=== PATIENT | female | born 1980 | race Caucasian/White ===

== ENCOUNTER → 2016-07-25 | Outpatient (CLI) | payer OTHER | LOC: FIMAGING 13:30 | PROVIDERS: ATTEND Physician Assistant Medical | DX: Z12.39 Encounter for other screening for malignant neoplasm of breast (principal); N63 Unspecified lump in breast | CPT/HCPCS: G0204 ==

== ENCOUNTER → 2016-08-02 | Outpatient (CLI) | payer OTHER ==
[~2016-08-02] MED LIST: BUPIVACAINE 0.5% 10 ML SDV ONE; LIDO/EPI 1% **Not for Epidural 20 ML MDV ONE; LIDOCAINE 1% 300 MG/30 ML SDV ONE; NA BICARBONATE 50 MEQ/50 ML VIAL ONE; THROMBIN (BOVINE) 5,000 UNIT VIAL TP ONE
== END ==
LOC: FIMAGING 07:46
PROVIDERS: ATTEND Physician Assistant Medical
PROC: 0HBU3ZX Excision of Left Breast, Percutaneous Approach, Diagnostic (ICD-10-PCS; principal; 2016-08-02)
DX: C50.012 Malignant neoplasm of nipple and areola, left female breast (principal); D05.12 Intraductal carcinoma in situ of left breast
CPT/HCPCS: G0206

== ENCOUNTER → 2016-08-14 | Outpatient (CLI) | payer OTHER ==
[~2016-08-14] MED LIST changes: -BUPIVACAINE 0.5% 10 ML SDV ONE; +GADOBUTROL 10 ML VIAL IVP ONE; -LIDO/EPI 1% **Not for Epidural 20 ML MDV ONE; -LIDOCAINE 1% 300 MG/30 ML SDV ONE; -NA BICARBONATE 50 MEQ/50 ML VIAL ONE; -THROMBIN (BOVINE) 5,000 UNIT VIAL TP ONE
== END ==
LOC: FIMAGING 14:14
PROVIDERS: ATTEND Physician Assistant Medical
DX: C50.412 Malignant neoplasm of upper-outer quadrant of left female breast (principal); R91.8 Other nonspecific abnormal finding of lung field
CPT/HCPCS: 0159T; 77059; A9585; C8908

== ENCOUNTER → 2016-08-24 | Outpatient (CLI) | payer OTHER ==
[~2016-08-24] MED LIST changes: +BUPIVACAINE 0.5% 10 ML SDV ONE; -GADOBUTROL 10 ML VIAL IVP ONE; +LIDOCAINE 1% 300 MG/30 ML SDV ONE; +MIDAZOLAM 2 MG/2 ML VIAL ONE; +ONDANSETRON 4 MG/2 ML VIAL ONE; +fentaNYL 100 MCG/2 ML INJ ONE
[2016-08-24 14:03] LABS: HEMATOCRIT 42.4 % (38.0-47.0)
[2016-08-24 14:10] LABS: APTT 29.2 SEC (23.0-38.0); INR 1.08 (0.83-1.16); PROTIME(PATIENT) 13.9 SEC (12.0-15.0)
[2016-08-24 16:12] VITALS: TEMP 98.2
[2016-08-24 16:36] VITALS: RESP 15
[2016-08-24 16:38] VITALS: BP 93/67; PULSE 71; O2SAT 94
== END ==
LOC: FIMAGING 12:38
PROVIDERS: ATTEND Internal Medicine Hematology & Oncology
DX: R22.2 Localized swelling, mass and lump, trunk (principal); C50.412 Malignant neoplasm of upper-outer quadrant of left female breast
CPT/HCPCS: J2250; J2405; J3010

== ENCOUNTER 2017-02-16 09:31 | Inpatient (IN) | payer OTHER ==
[2017-02-16] MEDS ORDERED: DEXAMETHASONE 4 MG/ML VIAL IVP ONE (09:57)
[2017-02-16] MEDS ORDERED: ceFAZolin 2 GM/SWFI 2 GM/20 ML SYR IVP ONE (09:57)
[2017-02-16] MEDS ORDERED: ONDANSETRON 4 MG/2 ML VIAL IVP ONE (09:57)
[2017-02-16] MEDS ORDERED: LR 1,000 ML IV ONE (09:58)
[2017-02-16] MEDS ORDERED: LIDOCAINE 1% 2 ML INJ ID PRN (09:58)
[2017-02-16] MEDS ORDERED: GENTAMICIN SULFATE 80 MG/2 ML VIAL ONE (11:46)
[2017-02-16] MEDS ORDERED: BACITRACIN 50,000 UNITS/10 ML SYR IRR ONE (11:48)
[2017-02-16] MEDS ORDERED: ceFAZolin 1 GM/5 ML SYR ONE (11:48)
[2017-02-16] MEDS ORDERED: METHYLENE BLUE 0.5% 50 MG/10 ML AMP ONE (11:59)
--- NOTE | 2017-02-16 12:07 | PDANEPAE ---
ANE History of Present Illness 37 yo F w BCA here for B mastectomy with tissue expanders ANE Past Medical History - Cardiovascular History Hx Hypertension: No Hx Arrhythmias: No Hx Chest Pain: No Hx Coronary Artery / Peripheral Vascular Disease: No Hx CHF / Valvular Disease: No Hx Palpitations: No - Pulmonary History Hx COPD: No Hx Asthma/Reactive Airway Disease: No Hx Recent Upper Respiratory Infection: No Hx Oxygen in Use at Home: No Hx Sleep Apnea: No Sleep Apnea Screening Result - Last Documented: Negative - Neurologic History Hx Cerebrovascular Accident: No Hx Seizures: No Hx Dementia: No - Endocrine History Hx Diabetes: No - Renal History Hx Renal Disorders: No - Liver History Hx Hepatic Disorders: No - Neurological & Psychiatric Hx Hx Neurological and Psychiatric Disorders: No - Cancer History Hx Cancer: Yes Cancer History Comment: Breast CA - Congenital Disorder History Hx Congenital Disorders: No - GI History Hx Gastrointestinal Disorders: No - Other Health History Other Health History: NONE - Chronic Pain History Chronic Pain: No - Surgical History Prior Surgeries: Maria Esther; wisdom teeth extraction ANE Review of Systems Review of Systems: - Exercise capacity METS (RN): 4 METS ANE Patient History - Allergies Allergies/Adverse Reactions: No Known Allergies Allergy (Verified 01/24/17 14:12) - Home Medications Home Medications: Multivitamins [Multivitamin (OTC)] 1 each PO DAILY 10/17/11 [Last Taken 10/09/11 ] LORazepam [Ativan (*)] 0.5 - 1 mg PO DAILY PRN 01/19/17 [Last Taken Unknown] Levothyroxine [Synthroid 75 mcg (*)] 75 mcg PO DAILY06 01/19/17 [Last Taken Unknown] - NPO status NPO Status: no food or drink >8 hours NPO Since - Liquids (Date): 02/16/17 NPO Since - Liquids (Time): 06:00 NPO Since - Solids (Date): 02/15/17 NPO Since - Solids (Time): 18:30 - Anes Hx Anes Hx: post operative nausea - Smoking Hx Smoking Status: Never smoked - Alcohol Use Alcohol Use: None - Family Anes Hx Family Anes Hx: none Family Hx Anesthesia Complications: NONE ANE Labs/Vital Signs - Vital Signs Blood Pressure: 96/63 Heart Rate: 77 Respiratory Rate: 18 O2 Sat (%): 96 Height: 170.18 cm Weight: 77.111 kg ANE Physical Exam - [facility] Mouth exam: normal dental/mouth exam - Pulmonary Pulmonary: no respiratory distress, clear to auscultation - Cardiovascular Cardiovascular: regular rate and rhythym, no murmur, rub, or gallop - ASA Status ASA Status: III ANE Anesthesia Plan Anesthesia Plan: general endotracheal anesthesia Lines/Monitors: arterial line Total IV Anesthesia: Yes
[2017-02-16] MEDS ORDERED: MIDAZOLAM 2 MG/2 ML VIAL IVP ONE (12:10)
[2017-02-16] MEDS ORDERED: SCOPOLAMINE HYDROBROMIDE 1 MG/3 DAYS PATCH TD SCH (12:15)
[2017-02-16] MEDS ORDERED: fentaNYL 100 MCG/2 ML INJ ONE (12:20)
[2017-02-16] MEDS ORDERED: PROPOFOL/EMULSION 500 MG/50 ML BOTTLE IV ONE ×3 (12:20→15:23)
[2017-02-16] MEDS ORDERED: PROPOFOL 200 MG/20 ML VIAL ONE (12:20)
[2017-02-16] MEDS ORDERED: ROCURONIUM 50 MG/5 ML VIAL ONE (12:23)
[2017-02-16] MEDS ORDERED: LIDOCAINE 2% 100 MG/5 ML SYR ONE (12:23)
[2017-02-16] MEDS ORDERED: ACETAMINOPHEN 325 MG TAB PO PRN (12:39)
[2017-02-16] MEDS ORDERED: LR 1,000 ML IV SCH (13:00)
[2017-02-16] MEDS ORDERED: HYDROmorphONE/DILAUDID 2 MG/ML INJ ONE (13:35)
[2017-02-16] MEDS ORDERED: ceFAZolin 2 GM/DEXTROSE 100 ML IV SCH (14:00)
[2017-02-16] MEDS ORDERED: BACITRACIN ZINC 14.2 GM OINTTUBE TP ONE (15:16)
[2017-02-16] MEDS ORDERED: BUPIVACAINE 0.25% 30 ML SDV ONE (15:22)
[2017-02-16] MEDS ORDERED: OXYCODONE/APAP 5/325 TAB PO PRN (16:06)
[2017-02-16] MEDS ORDERED: HYDROmorphONE/DILAUDID 1 MG/ML INJ IVP PRN (16:06)
[2017-02-16] MEDS ORDERED: ACETAMINOPHEN 500 MG TAB PO PRN (16:06)
[2017-02-16] MEDS ORDERED: ONDANSETRON 4 MG/2 ML VIAL IVP PRN (16:06)
[2017-02-16] MEDS ORDERED: fentaNYL 100 MCG/2 ML INJ IVP PRN (16:06)
[2017-02-16] MEDS ORDERED: PROMETHAZINE HCL 25 MG/ML INJ IVP PRN (16:06)
[2017-02-16] MEDS ORDERED: MEPERIDINE 25 MG/ML SYR IVP PRN (16:06)
[2017-02-16] MEDS ORDERED: NALOXONE HCL 0.4 MG/ML INJ IVP PRN (16:06)
[2017-02-16] MEDS ORDERED: HYDROCODONE/APAP 5/325 TAB PO PRN (16:06)
--- NOTE | 2017-02-16 16:17 | POSTOPPROG ---
Post Op Note Date of Operation: 02/16/17 Surgeon: Ha Farah (, FACS) Stock Order Lister: Jody Sanders RN-FA Anesthesiologist: Bang Mares MD Anesthesia: GET(General Endotracheal) Pre-op Diagnosis: left breast cancer Post-op Diagnosis: same Procedure: bilateral total mastectomy with SLN mapping and superficial ALND Findings: 2/2 nodes right + 3/3 nodes negative by frozen Inf/Abcess present in the surg proc area at time of surgery?: No Drains: Delta Khanna Specimen(s): bilateral breast and bilateral SLNs
[2017-02-16] MEDS ORDERED: PROMETHAZINE HCL 25 MG/ML INJ ONE (16:29)
[2017-02-16] MEDS ORDERED: ONDANSETRON 4 MG/2 ML VIAL ONE (16:29)
[2017-02-16] MEDS ORDERED: DIAZEPAM 10 MG/2 ML SYR ONE (16:48)
[2017-02-16] MEDS ORDERED: DIAZEPAM 10 MG/2 ML SYR IVP PRN (16:53)
[2017-02-16] MEDS: LR 1,000 ML IV SCH (18:19)
[2017-02-16] MEDS: PROMETHAZINE HCL 25 MG/ML INJ IVP PRN (18:28)
[2017-02-16] MEDS: CYCLOBENZAPRINE 10 MG TAB PO SCH ×2 (19:28→21:24)
--- NOTE | 2017-02-16 19:55 | POSTANESTH ---
Post Anesthetic Evaluation Cardiovascular Status: Normal, Stable, Similar to Pre-Op Cond Respiratory Status: Normal, Stable, Similar to Pre-op Cond. Level of Consciousness/Mental Status: Can Participate in Eval, Alert and Oriented Pain Control: Adequate, Prn Tx Ordered Nausea/Vomiting Control: Adequate, Prn Tx Ordered Complications Possibly Related to Anesthesia: None Noted
[2017-02-16] MEDS: ONDANSETRON 4 MG/2 ML VIAL IVP PRN (21:22)
[2017-02-16] MEDS: ceFAZolin 2 GM/DEXTROSE 100 ML IV SCH (21:32)
[2017-02-17] MEDS: PROMETHAZINE HCL 25 MG/ML INJ IVP PRN (01:56)
[2017-02-17] MEDS: LR 1,000 ML IV SCH (01:59)
[2017-02-17] MEDS: HYDROmorphONE/DILAUDID 1 MG/ML INJ IVP PRN ×2 (02:38→09:12)
--- NOTE | 2017-02-17 04:52 | GOP ---
[f rep st] OPERATIVE REPORT DATE OF OPERATION: 02/16/2017 SURGEON: Chang Cortes MD GROUP INSURANCE SPECIALIST: Fadi Christy, FARM LABORER. ANESTHESIA: General endotracheal. PREOPERATIVE DIAGNOSIS: Left breast cancer. POSTOPERATIVE DIAGNOSIS: Left breast cancer. PROCEDURE PERFORMED: Bilateral breast reconstruction with tissue expanders and AlloDerm. FINDINGS: At the time of surgery were bilateral mastectomies. SPECIMENS: For my part, were none; and urine was not recorded. ESTIMATED BLOOD LOSS: 30 cc. INDICATIONS: The patient is a 37-year-old female with diagnosed left breast cancer approximately a f ew months ago. This was treated with adjuvant therapy. She now presents today for bilateral mastect omies and immediate reconstruction. DESCRIPTION OF PROCEDURE: The patient was met in the preoperative area where the risks and benefits were discussed with her at length, which include but not limited to infection, bleeding, hematoma, se sundeep, partial or total mastectomy skin flap necrosis, asymmetry, poor cosmesis, and the need for furt her revision surgeries. She was agreeable to this and therefore signed the operative consent. Withi n the preoperative area, she was marked in the midline, her inframammary fold as well as the breast m eridian, and the elliptical incisions around the nipples in order to make the mastectomy cuts. Once brought into the operating room, a time-out was performed, where all in the room agreed upon the site and the procedure to be performed. She received 2 g of Ancef prior to any incision being made. Bobby ateral SCDs were placed for DVT prophylaxis. The bilateral mastectomy part will be dictated by my co Dr. Ha hernadez. We began our part of procedure on the right side. We identified the mastectomy skin flaps and they w ere deemed to be viable, and we washed out with copious amounts of sterile saline and any hemostasis was achieved with electrocautery. We began and found the lateral border of the pectoralis major musc le. This was lifted up off the chest wall to develop a subpectoral pocket for the impending placemen t of the radiology receptionist. We were careful to coagulate any intercostal perforators with electrocautery, and made a smooth contour of the subpectoral pocket. We then traced out the footplate of the radiology receptionist. The radiology receptionist that was chosen was a 12 cm base diameter radiology receptionist. This was traced with methylene jake e for the placement of AlloDerm. A 20 x 12, 2.2 mm thick piece of AlloDerm was then used and cut to contour. This was then sutured to the patient's inframammary fold as well as the lateral chest wall with a running 2-0 Vicryl suture. The pocket was then washed out with copious amounts of triple anti biotic saline, and my event sales assistant and I changed our gloves. All the air was taken out of the radiology receptionist in a closed sterile fashion, and this was placed within the subpectoral pocket and good orientation w as confirmed. The suture tabs were then sutured to the chest wall with 2-0 PDS sutures and, again, c orrect orientation was confirmed. The subpectoral pocket was then closed completely with a running 2 -0 Vicryl suture, with the superior border of the AlloDerm to the inferior border of pectoralis major muscle. Again, this was all washed out with copious amounts of sterile saline. Two 15-Kinyarwanda round RENE drains were placed, one along the IMF and one within the lateral axilla, and secured to the skin with 2-0 silk sutures. Tailor tacking was then performed because the patient had excess skin from th e mastectomy incisions. This was done sharply with a 10 blade, and then the skin was closed in a com plex fashion with 3-0 Monocryl and skin nicole. She was then filled in a closed sterile fashion; th is was 300 cc done on the right side, and no undue tension on the flaps was performed. The same proc edure was then performed on the left side. Again, another 13 base diameter, 133 MX-13T radiology receptionist was placed on the other side, and also a 12 x 20 AlloDerm was cut to contour. The subpectoral pocket was developed in the exact same fashion. The radiology receptionist was then placed, and also we had to tailor tack t he skin on the left side as well, and also 300 cc were placed in the left-sided radiology receptionist under closed sterile conditions with sterile saline infused with methylene blue. Dressings were then placed with bacitracin along the incision line, Xeroform, fluffs, and a surgical support bra. There were no com plications. The count was correct at the end of the case. She was awoken and taken to PACU. IV FLUIDS: 2 L. COMPLICATIONS: None. EXPANDERS: The left was serial number [id number]; this is a 133 MX-13T. The fill was 300 out of 500 c c. Right-sided tissue radiology receptionist was [id number]. Again, this is a 133 MX-13T; 300 out of 500. /[id number]/MODL
--- NOTE | 2017-02-17 05:28 | GOP ---
[f rep st] OPERATIVE REPORT DATE OF OPERATION: 02/16/2017 SURGEON: Ha Farah MD, FACS TERRAZZO FINISHER: VANITA Gastelum. ANESTHESIA: General endotracheal. ANESTHESIOLOGIST: Bang Mares MD. PREOPERATIVE DIAGNOSIS: Left breast carcinoma, status post neoadjuvant chemotherapy. POSTOPERATIVE DIAGNOSIS: Left breast carcinoma, status post neoadjuvant chemotherapy. PROCEDURE PERFORMED: 1. Bilateral total mastectomy. 2. Bilateral sentinel lymph node mapping and superficial axillary lymph node dissection. 3. Venous Port removal FINDINGS: 2/2 sentinel nodes on the right and 3/3 sentinel nodes on the left negative by frozen section for metastasis ESTIMATED BLOOD LOSS: For this portion of the procedure: 200 mL. 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 She underwent neoadjuvant chemotherapy had resolution of the lesion in the sternum and considerable shrinkage of the tumor in the left upper outer quadrant of her breast by PET imaging. She tested positive for the BRCA1 mutation and elected bilateral mastectomy after completion of chemotherapy. DESCRIPTION OF PROCEDURE: After informed consent was obtained, the patient was brought to the operating room and placed under general anesthesia. The chest wall, axilla, neck and abdomen were prepped and draped in the usual sterile fashion. Before proceeding, a time-out and identification of the patient was performed. The right mastectomy was performed first as follows. An intercostal block was placed at the 4th, 5th and 6th intercostal space with 0.25% Marcaine, approximately 5-6 mm delivered to each intercostal space. The mastectomy incision was made with a scalpel as a transverse incision encompassing the nipple-areolar complex, transversely oriented across the chest wall. Skin flaps were elevated using cautery, the breast from the overlying skin. Dissection carried out cephalad to the infraclavicular fossa, medially to the sternal border, and inferiorly to the inframammary fold. The patient had several larger intercostal perforators that required securing with hemoclips and/or suture ligatures. The lateral aspect of the dissection was carried out to the latissimus border. The breast was then from the underlying pectoralis using cautery, starting medially and sweeping the breast laterally off the pectoralis. At the pectoral border dissection was carried out posteriorly to the latissimus along the course of the serratus and cephalad to the axilla. The tail of the breast was at the axillary fascia. This was taken from the field and tagged for orientation and submitted for gross inspection as well as permanent section. The axilla was interrogated with the gamma probe. Mapping the sentinel nodes which appeared in the mid level 1 chain. These were superficial to the thoracodorsal neurovascular bundle and were not clinically suspicious. Two nodes were retrieved adjacent to each other in 1 specimen and were removed from the field. The surrounding lymphovascular structures were hemoclipped and divided. The remaining nodes in the axilla demonstrated considerably less than 10% of the maximum counts of the 2 sentinel nodes. These were submitted for frozen section and were ultimately shown to show no evidence of metastatic malignancy on frozen section. Hemostasis appeared secure within the mastectomy site and axillary site and wound was covered with a moistened laparotomy sponge. Turning to the left side, the breast was inspected and the axilla interrogated with the Neoprobe, identifying the sentinel nodes in the lower level 1 chain somewhat posteriorly. This was noted. The mastectomy was initiated through a transverse incision, mirror image to the right, dissecting cephalad in the subcutaneous plane to the infraclavicular fossa where the patient's venous port was encountered. This was detached along with its sutures and liberated from the subcutaneous pocket where it had resided for the past several months. The tunnel leading the subclavian vein was oversewn with a 3-0 Vicryl suture in a [id number] fashion. As the catheter was removed the suture was secured closing the tunnel. The port and catheter were removed from the field. The remainder of the dissection was continued with cautery to the infraclavicular fossa, medially to the sternal border, inferiorly to the inframammary fold and laterally to the latissimus border. The patient's tumor had been in the upper outer quadrant, was barely palpable at the time of surgery, though it had been quite prominent upon presentation, representing a significant clinical response to chemotherapy. The breast was swept from the pectoralis border, larger vessels was secured with hemoclips and/or ligated with 3-0 Vicryl ligatures. The breast was dissected to the pectoralis border, posteriorly to the latissimus border and cephalad to the axillary tail. There were no palpably suspicious nodes. The breast was from the axilla, removed from the field and tagged for orientation, submitted for gross inspection as well as permanent section. The axillary fascia was incised and superficial axillary nodes were dissected. The sentinel nodes presented deep in the lower level 1 chain. Dissection came to the superficial plane of the thoracodorsal neurovascular bundle and 3 sentinel nodes were retrieved, none of which appeared clinically suspicious. The remaining nodes in the axilla were interrogated and inspected, none appeared suspicious. Lymphovascular structures were hemoclipped and/or divided with sparing use of cautery. Upon completion, hemostasis appeared secure. Subsequently, the lymph nodes were found to be negative by frozen section and were submitted for permanent section and immune histo chemistry. While we were completing the left mastectomy, Dr. Cortes had initiated the right reconstruction and continued to the left side, as we had completed the mastectomy. I returned to the operating room upon the patient's extubation and escorted her to the recovery room along with Dr. Mares, and she was in stable condition. COMPLICATIONS: None. /[id number]/MODL MTDD
[2017-02-17 05:29] LABS: HEMATOCRIT 31.2 % (38.0-47.0); HEMOGLOBIN 10.3 g/dL (12.6-16.3); MEAN CELL HEMOGLOBIN 31.5 pg (27.9-34.1); MEAN CELL VOLUME 95.4 fL (81.5-99.8); RED BLOOD CELL COUNT 3.27 10^6/uL (4.18-5.33); RED CELL DISTRIBUTION WIDTH 12.7 % (11.5-15.2)
[2017-02-17] MEDS: ceFAZolin 2 GM/DEXTROSE 100 ML IV SCH ×3 (06:09→22:01)
[2017-02-17] MEDS: LEVOTHYROXINE 75 MCG TAB PO SCH (06:12)
[2017-02-17] MEDS: ONDANSETRON 4 MG/2 ML VIAL IVP PRN ×3 (09:11→17:05)
[2017-02-17] MEDS: CYCLOBENZAPRINE 10 MG TAB PO SCH ×3 (09:11→22:01)
[2017-02-17] MEDS ORDERED: HYDROmorphone HCL/NS/PF 0.4 MG/2 ML SYR IVP PRN (09:15)
--- NOTE | 2017-02-17 10:42 | SOAPPROG ---
SOAP Progress Note Assessment/Plan: Assessment: POD#1 bilateral mastectomies and reconstruction with tissue expanders and alloderm Plan: 02/17/17 10:38 1. Encourage ambulation 2. PO pain control 3. Cont IV antibiotics 4. Add ibuprofen 600mg q6hr Subjective: Moderate pain control, has yet to ambulate Objective: Vital Signs Temp Pulse Resp BP Pulse Ox 36.9 C 68 18 122/65 H 97 02/17/17 08:20 02/17/17 08:20 02/17/17 08:20 02/17/17 08:20 02/17/17 08:20 Laboratory Results 02/17/17 04:42 02/16/17 02/17/17 02/18/17 05:59 05:59 05:59 Intake Total 2625 Output Total 1195 85 Balance 1430 -85 Bilateral mastectomy skin flaps with minimal swelling and bruising, INC: C/D/I RENE drains serosang ICD10 Worksheet Patient Problems: Problems Problem Status Onset Breast cancer Acute - ICD10 Problem Qualifiers (1) Breast cancer
--- NOTE | 2017-02-17 12:38 | SOAPPROG ---
SOAP Progress Note Assessment/Plan: Assessment:doing well post op Plan:po meds/? home tomorrow 02/17/17 12:37 Subjective: resting comfortably/mild nausea voided x 2 Objective: Vital Signs Temp Pulse Resp BP Pulse Ox 37.0 C 81 17 104/60 89 L 02/17/17 11:46 02/17/17 11:46 02/17/17 11:46 02/17/17 11:46 02/17/17 11:46 Laboratory Results 02/17/17 04:42 02/16/17 02/17/17 02/18/17 05:59 05:59 05:59 Intake Total 2625 Output Total 1195 85 Balance 1430 -85 Physical Exam - Physical Exam General Appearance: no apparent distress Respiratory: lungs clear Cardiac/Chest: regular rate, rhythm Skin: other (mastectomy sites uncomplicated) Extremities: non-tender ICD10 Worksheet Patient Problems: Problems Problem Status Onset Breast cancer Acute
[2017-02-17] MEDS: OXYCODONE/APAP 5/325 TAB PO PRN ×2 (12:42→17:05)
[2017-02-17] MEDS: IBUPROFEN 600 MG TAB PO SCH ×3 (12:43→21:03)
[2017-02-17] MEDS: ENOXAPARIN 40 MG/0.4 ML SYR SC SCH (12:47)
--- NOTE | 2017-02-17 16:20 | ASMTCMCOM ---
CM Note CM Note Notes: Pt s/p mastectomy. Anticipate d/c with no CM needs when medically cleared but will continue to follow for any change in needs. Date Signed: 02/17/2017 04:19 PM Electronically Signed By:NARDA Navarro
[2017-02-18] MEDS: CEPHALEXIN 500 MG CAP PO SCH ×3 (00:11→12:12)
[2017-02-18] MEDS: LEVOTHYROXINE 75 MCG TAB PO SCH (05:22)
[2017-02-18] MEDS: IBUPROFEN 600 MG TAB PO SCH ×2 (05:22→12:13)
[2017-02-18] MEDS: OXYCODONE/APAP 5/325 TAB PO PRN ×2 (05:26→12:13)
[2017-02-18] MEDS ORDERED: ONDANSETRON DISINTEGRATING 4 MG TAB PO PRN (07:07)
[2017-02-18] MEDS ORDERED: MAGNESIUM HYDROXIDE 30 ML UDCUP PO PRN (07:08)
[2017-02-18] MEDS ORDERED: BISACODYL 10 MG SUPP PR PRN (07:08)
--- NOTE | 2017-02-18 07:12 | SOAPPROG ---
SOAP Progress Note Assessment/Plan: Assessment:doing well post op from surgical viewpoint RUE swelling likely related to IV infiltrating Plan: add oral Dilaudid to pain regimen increase activity 02/17/17 12:37 02/18/17 07:11 Subjective: reports RUE swelling starting at 1800 last PM. feels better this AM Objective: Vital Signs Temp Pulse Resp BP Pulse Ox 36.7 C 73 12 99/57 L 96 02/18/17 04:00 02/18/17 04:00 02/18/17 04:00 02/18/17 04:00 02/18/17 04:00 Laboratory Results 02/17/17 04:42 02/17/17 02/18/17 02/19/17 05:59 05:59 05:59 Intake Total 2625 1000 Output Total 1195 292 100 Balance 1430 708 -100 - Pending Discharge Pending Discharge Within 24 Hours: Yes Pending Discharge Date: 02/19/17 Pending Discharge Time: 11:00 Physical Exam - Physical Exam General Appearance: mild distress Respiratory: lungs clear, decreased breath sounds Cardiac/Chest: regular rate, rhythm Skin: other (mastectomy sites uncomplicated) Extremities: other (mild swelling RUE/tender without obvious phlebitis R distal cephalic vein (IV site)) ICD10 Worksheet Patient Problems: Problems Problem Status Onset Breast cancer Acute
[2017-02-18 08:43] VITALS: O2SAT 95
[2017-02-18] MEDS ORDERED: SENNOSIDES/DOCUSATE SODIUM TAB PO SCH (09:00)
[2017-02-18] MEDS: CYCLOBENZAPRINE 10 MG TAB PO SCH (09:31)
[2017-02-18] MEDS: HYDROmorphONE/DILAUDID 4 MG TAB PO PRN ×2 (09:31→14:10)
[2017-02-18] MEDS: ENOXAPARIN 40 MG/0.4 ML SYR SC SCH (09:32)
[2017-02-18 12:00] VITALS: BP 123/70; PULSE 74; RESP 16; TEMP 98
--- NOTE | 2017-02-18 14:18 | GDS ---
[f rep st] DISCHARGE SUMMARY DISCHARGE DIAGNOSIS: 1. Left breast carcinoma, status post neoadjuvant chemotherapy. 2. Postoperative pain and nausea. 3. Hypothyroidism. PROCEDURE PERFORMED: 02/16/2017, bilateral total mastectomy with sentinel lymph node mapping and gwendolyn ateral superficial axillary lymph node dissection followed by immediate reconstruction with tissue ex pander and AlloDerm placement. HOSPITAL COURSE: For details of admission history and physical, please see dictated summary. Briefl y, the patient is a 37-year-old female who completed neoadjuvant chemotherapy for triple negative lef t breast carcinoma. She was found to have an oligometastatic deposit in the upper sternum that resol anne-marie by PET imaging and was presumed malignant. The patient underwent surgery on the date of admissio n. Following surgery, she was admitted for postoperative observation. Had mild to moderate discomfo rt requiring intravenous hydromorphone in addition to oral oxycodone. Her IV infiltrated on the even ing after surgery and her arm became swollen. A stat venous duplex ultrasound was performed, and the re was no evidence of venous thrombosis and the swelling was presumed due to infiltration of her IV. At this point, she was mildly nauseated but was able to hold down oral liquids and medications. Ora l Dilaudid was added to her pain medicine regimen. She had poor pain control with oxycodone alone. S he had been taking Flexeril as well as ibuprofen for pain control. Her arm swelling improved with el evation and a hot pack and she tolerated a regular diet on the day of discharge. She was discharged home with instructions on activity, diet and follow up with Dr. Cortes in the upcoming week. Saroj stubbs call her with the results of her pathology. DISCHARGE MEDICATIONS: Flexeril 10 mg p.o. three times daily, Dilaudid 2 to 4 mg p.o. q.4 hours p.r. n., #30, ibuprofen 600 mg p.o. four times daily, Zofran 4 mg p.o. q.4 hours p.r.n. #10, Percocet 1 to 2 q.4 hours p.r.n., and Senokot S, 1 p.o. twice daily. In addition, she will resume Synthroid 75 mc g p.o. daily, multivitamins and Ativan 0.5 mg p.o. daily p.r.n. anxiety. CONDITION AT TIME OF DISCHARGE: Satisfactory. /[id number]/MODL
--- NOTE | 2017-02-18 15:22 | PDDCSUM ---
Discharge Summary Discharge Summary: #[id number] karen Farah MD, FACS
--- NOTE | 2017-02-18 15:39 | ASDISCHSUM ---
Discharge Information Plan Status:Home with No Needs Medically Cleared to Leave: Discharge Date:02/18/2017 03:05 PM CM D/C Disposition:Home, Routine, Self-Care ADT D/C Disposition:Home, Routine, Self-Care Projected Discharge Date:02/18/2017 03:05 PM Transportation at D/C: Discharge Delay Reason: Follow-Up Date:02/18/2017 03:05 PM Discharge Slot: Final Diagnosis: Placement Information Patient Contact Information Contact Name:LENORE Relationship: Address:[address] Work Phone: City:[facility] Phone: [facility]/Zip Code:[place] [address] Email: Financial Information Financial Class:HMO and PPO Plans Primary Plan Desc:SEMAJ FERNANDO PPO Primary Plan Number:[id number] Secondary Plan Desc:GARETT Secondary Plan Number:[id number] Assessment Information [facility] CM Progress Note CM Note CM Note Notes: Pt s/p mastectomy. Anticipate d/c with no CM needs when medically cleared but will continue to follow for any change in needs. Date Signed: 02/17/2017 04:19 PM Electronically Signed By:NARDA Navarro [facility] CM Progress Note CM Note CM Note Notes: Reviewed chart and discussed w/RN. Pt was able to dc home independantly today, no CM needs. Date Signed: 02/18/2017 03:38 PM Electronically Signed By:Leticia Brady RN Intervention Information
== END 2017-02-18 15:05 | disposition home or self-care (01) | DRG 941 ==
LOC: F3E 09:31 → F1N 13:27 → OBSVTOIN 02-18 09:38
PROVIDERS: ADMIT Surgery; ATTEND Surgery
PROC: 0HTV0ZZ Resection of Bilateral Breast, Open Approach (ICD-10-PCS; principal; 2017-02-16 12:15)
PROC: 07T50ZZ Resection of Right Axillary Lymphatic, Open Approach (ICD-10-PCS; principal; 2017-02-16 12:15)
PROC: 07T60ZZ Resection of Left Axillary Lymphatic, Open Approach (ICD-10-PCS; principal; 2017-02-16 12:15)
PROC: 05PY03Z Removal of Infusion Device from Upper Vein, Open Approach (ICD-10-PCS; principal; 2017-02-16 12:15)
PROC: 0HUV0JZ Supplement Bilateral Breast with Synthetic Substitute, Open Approach (ICD-10-PCS; principal; 2017-02-16 12:15)
DX: G89.18 Other acute postprocedural pain (principal); R11.0 Nausea; C50.412 Malignant neoplasm of upper-outer quadrant of left female breast; E03.9 Hypothyroidism, unspecified; Z92.21 Personal history of antineoplastic chemotherapy
CPT/HCPCS: A9520; G0378; J0690; J1100; J1170; J1650; J2001; J2250; J2405; J2550; J2704; J3010; Q4116; Q9968

== ENCOUNTER → 2017-03-30 | Outpatient (CLI) | payer OTHER | LOC: CIMAGING 14:52 | PROVIDERS: ATTEND Podiatrist | DX: M79.672 Pain in left foot (principal) | CPT/HCPCS: 73630-PO ==

== ENCOUNTER 2017-08-08 14:23 | Emergency (ER) | payer OTHER ==
[2017-08-08] MEDS ORDERED: ONDANSETRON 4 MG/2 ML VIAL IVP ONE (14:49)
[2017-08-08] MEDS ORDERED: NS 1,000 ML IV ONE ×2 (14:51→15:33)
[2017-08-08 15:01] LABS: PLATELET COUNT 223 10^3/uL (150-400)
--- NOTE | 2017-08-08 15:05 | EDPHY ---
HPI/HX/ROS/PE/MDM Narrative: CHIEF COMPLAINT: Vomiting HPI: The patient is a 37-year-old female with a history of breast cancer, currently on oral chemotherapy. She complains of nausea, vomiting and diarrhea since this morning. She states this is somewhat similar to side effects that she normally experiences from her oral chemotherapy but more severe. She denies fever or abdominal pain. She denies dysuria. She recently returned from camping but denies any exposure to abnormal food or water. No recent antibiotics. No blood in emesis or stool. REVIEW OF SYSTEMS: Aside from elements discussed in the HPI, a comprehensive 10-point review of systems was reviewed and is negative. PMH: Includes breast cancer. History of cholecystectomy. SOCIAL HISTORY: . Denies drug abuse. PHYSICAL EXAM: General:Patient is alert, in no acute distress. ENT:Eyes are normal to inspection. ENT inspection normal. Neck: Normal inspection. Full range of motion. Respiratory:No respiratory distress. Breath sounds normal bilaterally. Cardiovascular: Tachycardic rate, regular rhythm. Strong peripheral pulses. Normal cap refill. Abdomen:The abdomen is nontender to palpation. There are no peritoneal signs. There are normal bowel sounds. Back: Normal to inspection. No tenderness to palpation. Skin: Normal color. No rash. Warm and dry. Extremities: Normal appearance. Full range of motion. Neuro: Oriented x3. Normal motor function. Normal sensory function. ED Course: Patient treated with 2L IVNS, Zofran and Toradol. On re-evaluation at 1730, patient now slightly more tachycardic with lower BP. I have asked for lactic acid and blood cx to be sent. Abdomen remains non-tender to palpation, and patient actually feels better. 1800: Lactic acid within normal limits. Patient states she continues to feel better. HR 107. 1820: Patient still with BP 85/60 and HR 115. I had an extensive discussion with her and recommended admission as well as possible CTAP given her immunosuppressed status. She declines CT and would prefer to go home. She understands risks of decision including possible life-threat and worsening of condition/need for pressors etc. We agreed on a plan to try a PO challenge as well as a road test. 1845: Patient tolerating fluids by mouth and able to ambulate without difficulty. Her vitals remain abnormal, but she states she would like to be discharged. I repeated discussion of recommended admission and further workup with who is now present and he understands but is in agreement with his that they would like to try and go home. We specifically discussed fact that she is at elevated risk of infectious complications secondary to her oral chemotherapy. They promise to return to the hospital immediately should patient feel worse. In order to preserve the doctor-patient relationship, I have chosen not sign patient out AMA. - Data Points Laboratory Results: Laboratory Results 08/08/17 14:48 08/08/17 14:48 08/08/17 08/08/17 08/08/17 17:30 16:41 14:48 WBC RBC Hgb Hct MCV MCH MCHC RDW Plt Count MPV Neut % (Auto) Lymph % (Auto) [place] % (Auto) Eos % (Auto) Baso % (Auto) Nucleat RBC Rel Count Absolute Neuts (auto) Absolute Lymphs (auto) Absolute Monos (auto) Absolute Eos (auto) Absolute Basos (auto) Absolute Nucleated RBC Immature Gran % Immature Gran # VBG Lactic Acid 1.2 mmol/L mmol/L (0.7-2.1) Sodium Potassium Chloride Carbon Dioxide Anion Gap BUN Creatinine Estimated GFR Glucose Calcium Lipase Beta HCG, Qual NEGATIVE Urine Color YELLOW Urine Appearance CLEAR Urine pH 5.5 (5.0-7.5) Ur Specific [place] 1.025 (1.002-1.030) Urine Protein NEGATIVE (NEGATIVE) Urine Ketones TRACE H (NEGATIVE) Urine Blood NEGATIVE (NEGATIVE) Urine Nitrate NEGATIVE (NEGATIVE) Urine Bilirubin NEGATIVE (NEGATIVE) Urine Urobilinogen 0.2 EU EU (0.2-1.0) Ur Leukocyte Esterase NEGATIVE (NEGATIVE) Urine Glucose NEGATIVE (NEGATIVE) 08/08/17 08/08/17 14:48 14:48 WBC 8.88 10^3/uL 10^3/uL (3.80-9.50) RBC 4.34 10^6/uL 10^6/uL (4.18-5.33) Hgb 15.1 g/dL g/dL (12.6-16.3) Hct 43.0 % % (38.0-47.0) MCV 99.1 fL fL (81.5-99.8) MCH 34.8 pg H pg (27.9-34.1) MCHC 35.1 g/dL g/dL (32.4-36.7) RDW 16.8 % H % (11.5-15.2) Plt Count 223 10^3/uL 10^3/uL (150-400) MPV 10.1 fL fL (8.7-11.7) Neut % (Auto) 94.2 % H % (39.3-74.2) Lymph % (Auto) 2.0 % L % (15.0-45.0) [place] % (Auto) 3.3 % L % (4.5-13.0) Eos % (Auto) 0.3 % L % (0.6-7.6) Baso % (Auto) 0.0 % L % (0.3-1.7) Nucleat RBC Rel Count 0.0 % % (0.0-0.2) Absolute Neuts (auto) 8.36 10^3/uL H 10^3/uL (1.70-6.50) Absolute Lymphs (auto) 0.18 10^3/uL L 10^3/uL (1.00-3.00) Absolute Monos (auto) 0.29 10^3/uL L 10^3/uL (0.30-0.80) Absolute Eos (auto) 0.03 10^3/uL 10^3/uL (0.03-0.40) Absolute Basos (auto) 0.00 10^3/uL L 10^3/uL (0.02-0.10) Absolute Nucleated RBC 0.00 10^3/uL 10^3/uL (0-0.01) Immature Gran % 0.2 % % (0.0-1.1) Immature Gran # 0.02 10^3/uL 10^3/uL (0.00-0.10) VBG Lactic Acid Sodium 141 mEq/L mEq/L (135-145) Potassium 4.1 mEq/L mEq/L (3.3-5.0) Chloride 106 mEq/L mEq/L (97-110) Carbon Dioxide 25 mEq/l mEq/l (22-31) Anion Gap 10 mEq/L mEq/L (8-16) BUN 10 mg/dL mg/dL (7-23) Creatinine 0.7 mg/dL mg/dL (0.6-1.0) Estimated GFR > 60 Glucose 108 mg/dL H mg/dL (70-100) Calcium 8.7 mg/dL mg/dL (8.5-10.4) Lipase 25 IU/L IU/L (23-300) Beta HCG, Qual Urine Color Urine Appearance Urine pH Ur Specific [place] Urine Protein Urine Ketones Urine Blood Urine Nitrate Urine Bilirubin Urine Urobilinogen Ur Leukocyte Esterase Urine Glucose Medications Given: Discontinued Medications Sodium Chloride (Ns) 1,000 mls @ 0 mls/hr IV ONCE ONE PRN Reason: Wide Open Stop: 08/08/17 14:52 Last Admin: 08/08/17 14:55 Dose: 1,000 mls Sodium Chloride (Ns) 1,000 mls @ 0 mls/hr IV EDNOW ONE; Wide Open PRN Reason: Protocol Stop: 08/08/17 15:34 Last Admin: 08/08/17 15:37 Dose: 1,000 mls Ketorolac Tromethamine (Toradol) 30 mg IVP EDNOW ONE Stop: 08/08/17 16:11 Last Admin: 08/08/17 16:16 Dose: 30 mg Ondansetron HCl (Zofran) 4 mg IVP EDNOW ONE Stop: 08/08/17 14:50 Last Admin: 08/08/17 14:56 Dose: 4 mg General Time Seen by Provider: 08/08/17 14:52 Initial Vital Signs: Initial Vital Signs Temperature (C) 37.3 C 08/08/17 14:37 Heart Rate 127 H 08/08/17 14:37 Respiratory Rate 18 08/08/17 14:37 Blood Pressure 102/70 08/08/17 14:37 O2 Sat (%) 95 08/08/17 14:37 O2 Delivery Mode Room Air Allergies/Adverse Reactions: codeine Adverse Reaction (Severe, Verified 08/08/17 14:41) Home Medications: Medication Instructions Recorded Multivitamins [Multivitamin (*)] 1 each PO DAILY 10/17/11 LORazepam [Ativan (*)] 0.5 - 1 mg PO DAILY PRN 01/19/17 Levothyroxine [Synthroid 75 mcg 75 mcg PO DAILY06 01/19/17 (*)] Ondansetron Odt [Zofran Odt 4 mg 4 mg PO Q4HRS PRN #10 tab 02/18/17 (*)] Xeloda 08/08/17 Departure - Departure Disposition: Home, Routine, Self-Care Clinical Impression: Vomiting, Abdominal pain Condition: Fair Instructions: Acute Nausea and Vomiting (ED) Additional Instructions: You have refused further testing or admission to the hospital. We would be happy to re-evaluate to at any time. Please ensure the stay well hydrated and rest. Should you feel worse or develops new symptoms, proceed immediately to nearest emergency department. Use Zofran as indicated. Referrals: NONE *PRIMARY CARE P,. [Primary Care Provider] - As per Instructions
[2017-08-08] MEDS ORDERED: KETOROLAC 30 MG/1 ML SDV IVP ONE (16:10)
[2017-08-08 19:09] VITALS: BP 89/56
== END 2017-08-08 19:07 | disposition home or self-care (01) ==
LOC: CED 14:23
DX: R11.10 Vomiting, unspecified (principal); R10.9 Unspecified abdominal pain; E86.9 Volume depletion, unspecified; Z85.3 Personal history of malignant neoplasm of breast; Z90.49 Acquired absence of other specified parts of digestive tract
CPT/HCPCS: 80048-PO; 81003-PO; 83605-PO; 83690-PO; 84703-PO; 85025-PO; 96374; J1885; J2405

== ENCOUNTER → 2017-08-17 | Day surgery (SDC) | payer OTHER ==
[~2017-08-17] MED LIST changes: +ACETAMINOPHEN 325 MG TAB PO PRN; -BUPIVACAINE 0.5% 10 ML SDV ONE; +FLUMAZENIL 0.5 MG/5 ML MDV IVP ONE; +FLUMAZENIL 0.5 MG/5 ML MDV IVP PRN; +MEPERIDINE 25 MG/ML SYR IVP PRN; +MIDAZOLAM 2 MG/2 ML VIAL IVP PRN; +NALOXONE HCL 0.4 MG/ML INJ IVP PRN; +NALOXONE HCL 0.4 MG/ML INJ ONE; +NS 1,000 ML IV SCH; +ONDANSETRON 4 MG/2 ML VIAL IVP PRN; +fentaNYL 100 MCG/2 ML INJ IVP PRN
[2017-08-17 08:20] LABS: INR 0.96 (0.83-1.16)
--- NOTE | 2017-08-17 08:54 | PDGENHP ---
History & Physical Chief Complaint: procedure History of Present Illness: h/o Brca, prior treated sternal met. new right iliac FDG avid lesion. Relevant Physical Exam: NAD Cardiorespiratory Assessment: nl wob, rrr
--- NOTE | 2017-08-17 08:55 | PDPROPOC ---
Sedation Plan of Care Sedation Plan of Care: vital signs stable, mental status noted, patient educated of risks, benefits, alternatives, patient can tolerate sedation ASA Classification: ASA 2 Planned drugs: fentanyl, midazolam Mallampati Score: Class 2 Mallampati Reference Image:
[2017-08-17 09:47] VITALS: BP 102/64
--- NOTE | 2017-08-17 09:51 | PDRADPN ---
Radiology Procedure Note Date of Procedure: 08/17/17 Radiologist: Mane Rider Anesthesia: IV Sedation, Local (Specify) Pre-op Diagnosis: breast cancer Post-op Diagnosis: same Indication: suspected right iliac crest met Procedure: CT guided bone met biopsy Finding(s): Two 0.5-1.0 cm 13G cores obtained from upper right iliac crest sclerotic lesion that was FDG avid on recent PET. Inf/Abcess present in the surg proc area at time of surgery?: No EBL: Minimal Complications: none Specimen(s): Two 13G cores submitted in formalin.
== END | disposition home or self-care (01) ==
LOC: FIMAGING 07:19
PROVIDERS: ATTEND Internal Medicine Hematology & Oncology
PROC: 0QB23ZX Excision of Right Pelvic Bone, Percutaneous Approach, Diagnostic (ICD-10-PCS; principal; 2017-08-17)
DX: C79.51 Secondary malignant neoplasm of bone (principal); Z85.3 Personal history of malignant neoplasm of breast
CPT/HCPCS: J2250; J2310; J2405; J3010

== ENCOUNTER → 2017-10-04 | Outpatient (CLI) | payer OTHER | LOC: CIMAGING 13:40 | PROVIDERS: ATTEND Internal Medicine Hematology & Oncology | DX: R92.8 Other abnormal and inconclusive findings on diagnostic imaging of breast (principal); Z90.12 Acquired absence of left breast and nipple; Z85.3 Personal history of malignant neoplasm of breast | CPT/HCPCS: 76641-PO ==

== ENCOUNTER 2017-12-12 05:39 | Observation (INO) | payer OTHER ==
[2017-12-12] MEDS ORDERED: LR 1,000 ML IV ONE (06:03)
[2017-12-12] MEDS ORDERED: LR 1,000 ML IV SCH (07:00)
[2017-12-12] MEDS ORDERED: DEXAMETHASONE 10 MG/ML VIAL IVP ONE (07:00)
[2017-12-12] MEDS ORDERED: ceFAZolin 2 GM/DEXTROSE 100 ML IV ONE (07:00)
[2017-12-12] MEDS ORDERED: METHYLENE BLUE 0.5% 50 MG/10 ML AMP ONE (07:02)
[2017-12-12] MEDS ORDERED: VASOPRESSIN 20 UNIT/ML VIAL ONE (07:02)
[2017-12-12] MEDS ORDERED: BUPIVACAINE 0.25% 30 ML SDV ONE (07:02)
[2017-12-12] MEDS ORDERED: GENTAMICIN SULFATE 80 MG/2 ML VIAL ONE (07:02)
[2017-12-12] MEDS ORDERED: BACITRACIN ZINC 14.2 GM OINTTUBE TP ONE (07:02)
[2017-12-12] MEDS ORDERED: ceFAZolin 1 GM/5 ML SYR ONE (07:03)
[2017-12-12] MEDS ORDERED: BACITRACIN 50,000 UNITS/10 ML SYR IRR ONE (07:03)
[2017-12-12] MEDS ORDERED: MIDAZOLAM 2 MG/2 ML VIAL IVP ONE (07:04)
--- NOTE | 2017-12-12 07:04 | PDGENHP ---
History & Physical Chief Complaint: Left breast cancer History of Present Illness: Haley is a 37 year old female with left breast cancer who underwent bilateral mastectomies and immediate reconstruction with tissue expanders. She require adjuvant therapy and finished radiation over 6 months ago. She presents today for exchange of her tissue expanders and THERESE. Pertinent Past, Social, Family History: No changes to health history since last visit Relevant Physical Exam: Bilateral intact expanders Cardiorespiratory Assessment: Heart: RRR nl S1 and S2. Lungs: CTA B
--- NOTE | 2017-12-12 07:11 | PDANEPAE ---
ANE History of Present Illness 37 year with breast go ANE Past Medical History - Cardiovascular History Hx Hypertension: No Hx Arrhythmias: No Hx Chest Pain: No Hx Coronary Artery / Peripheral Vascular Disease: No Hx CHF / Valvular Disease: No Hx Palpitations: No - Pulmonary History Hx COPD: No Hx Asthma/Reactive Airway Disease: No Hx Recent Upper Respiratory Infection: No Hx Oxygen in Use at Home: No Hx Sleep Apnea: No Sleep Apnea Screening Result - Last Documented: Negative - Neurologic History Hx Cerebrovascular Accident: No Hx Seizures: No Hx Dementia: No - Endocrine History Hx Diabetes: No Endocrine History Comment: HYPOTHYROID - Renal History Hx Renal Disorders: No - Liver History Hx Hepatic Disorders: No - Neurological & Psychiatric Hx Hx Neurological and Psychiatric Disorders: No - Cancer History Hx Cancer: Yes Cancer History Comment: Breast CA - Congenital Disorder History Hx Congenital Disorders: No - GI History Hx Gastrointestinal Disorders: No Gastrointestinal History Comment: DIARRHEA RELATED TO MEDS - Other Health History Other Health History: NONE - Chronic Pain History Chronic Pain: No - Surgical History Prior Surgeries: Maria Esther; wisdom teeth extraction ANE Review of Systems Review of systems is: negative Review of Systems: - Exercise capacity METS (RN): 4 METS ANE Patient History - Allergies Allergies/Adverse Reactions: codeine Allergy (Severe, Verified 11/08/17 10:20) Vomiting hydromorphone [From Dilaudid] Allergy (Verified 11/08/17 10:20) Hives - Home Medications Home Medications: Multivitamins [Multivitamin (*)] 1 each PO DAILY 10/17/11 [Last Taken 1 Week Ago ~12/05/17] Levothyroxine [Synthroid 75 mcg (*)] 75 mcg PO DAILY06 01/19/17 [Last Taken 04/29] Herbals/Supplements -Info Only 1 ea PO DAILY 11/08/17 [Last Taken 1 Week Ago ~] Liothyronine Sodium [Cytomel 5 mcg (*)] 5 mcg PO DAILY 11/08/17 [Last Taken 04/29] Olaparib [Lynparza] 150 mg PO DAILY 11/08/17 [Last Taken 12/07/17] Olaparib [Lynparza] 300 mg PO HS 11/08/17 [Last Taken 12/07/17] Randolph-3 Fatty Acids [Fish Oil 1000 mg (*)] 1,000 mg PO DAILY 11/08/17 [Last Taken 3 Months Ago ~09/11/17] - NPO status NPO Since - Liquids (Date): 12/12/17 NPO Since - Liquids (Time): 04:00 NPO Since - Solids (Date): 12/11/17 NPO Since - Solids (Time): 18:15 - Smoking Hx Smoking Status: Never smoked - Family Anes Hx Family Hx Anesthesia Complications: NONE ANE Labs/Vital Signs - Vital Signs Blood Pressure: 101/70 Heart Rate: 75 Respiratory Rate: 18 O2 Sat (%): 95 Height: 170.18 cm Weight: 90.718 kg ANE Physical Exam - Airway Neck exam: FROM Mallampati Score: Class 1 - Pulmonary Pulmonary: no respiratory distress - Cardiovascular Cardiovascular: regular rate and rhythym - ASA Status ASA Status: II ANE Anesthesia Plan Anesthesia Plan: general endotracheal anesthesia, spinal
[2017-12-12] MEDS ORDERED: SCOPOLAMINE HYDROBROMIDE 1 MG/3 DAYS PATCH TD SCH (07:15)
[2017-12-12] MEDS ORDERED: EPINEPHrine 1 MG/ML INJ ONE (07:18)
[2017-12-12] MEDS ORDERED: LIDOCAINE 1% 300 MG/30 ML SDV ONE (07:18)
[2017-12-12] MEDS ORDERED: fentaNYL 100 MCG/2 ML INJ ONE ×3 (07:25→11:45)
[2017-12-12] MEDS ORDERED: morphINE PF 5 MG/10 ML INJ ONE (07:30)
[2017-12-12] MEDS ORDERED: PROPOFOL 200 MG/20 ML VIAL ONE ×2 (07:38→09:15)
[2017-12-12] MEDS ORDERED: PROPOFOL/EMULSION 500 MG/50 ML BOTTLE IV ONE ×4 (07:42→10:18)
[2017-12-12] MEDS ORDERED: KETAMINE 200 MG/20 ML VIAL ONE (07:43)
--- NOTE | 2017-12-12 09:09 | POSTOPPROG ---
Post Op Note Date of Operation: 12/12/17 Surgeon: Chang Cortes Ship'S Engineer: Fadi CRAWFORD Anesthesiologist: José Warm Anesthesia: Epidural, GET(General Endotracheal) Pre-op Diagnosis: Left breast cancer Post-op Diagnosis: Left breast cancer Indication: Bilateral mastectomies with reconstruction Procedure: Bilateral breast tissue geodetic surveyor technologist exchange to implants Findings: bilateral intact expanders Inf/Abcess present in the surg proc area at time of surgery?: No EBL: Minimal (5cc) Total fluids administered: 1000cc Complications: none
--- NOTE | 2017-12-12 09:40 | GOP ---
DATE OF OPERATION: 12/12/2017 SURGEON: Chang Cortes MD GLOBE MOUNTER: Fadi Christy, Ticket Machine Operator. ANESTHESIA: General endotracheal. ANESTHESIOLOGIST: Bhaskar Nuñez MD. PREOPERATIVE DIAGNOSIS: 1. Bilateral absence of breasts and nipples. 2. Left breast cancer. POSTOPERATIVE DIAGNOSIS: 1. Bilateral absence of breasts and nipples. 2. Left breast cancer. PROCEDURE PERFORMED: 1. Bilateral tissue hall monitor exchanged to implants. 2. Bilateral capsulotomy. 3. Right capsulorrhaphy. FINDINGS: Bilateral intact expanders SPECIMENS: None. ESTIMATED BLOOD LOSS: 5cc INDICATIONS: The patient is a 37-year-old female with left breast cancer. She underwent bilateral skin-sparing mastectomies and required adjuvant therapy, which included radiation. She is 6 months after radiation. She now presents today for bilateral tissue hall monitor exchange to implant as well as vaginal hysterectomy, which will be dictated by my colleague, Dr. Arelis Wei. DESCRIPTION OF PROCEDURE: The patient was met in the preoperative area where the risks and benefits were discussed with her at length which include but not limited to infection, bleeding, hematoma, seroma, injury to the implants requiring removal, asymmetries, partial or total mastectomy skin flap necrosis, and need for further revision surgeries. She was agreeable to this and therefore signed the operative consent. She was then brought into the operating room and prior to going to sleep a time-out was performed where all in the room agreed upon the site and the procedure to be performed. She received 2 g of Ancef perioperatively prior to any incision being made. SCDs were placed for DVT prophylaxis. We began on the patient's right side. 10 cc of 1% lidocaine with epinephrine was injected along the old mastectomy incision site. This was incised sharply with a 10 blade through the subcutaneous tissue down to the AlloDerm pectoralis junction. This was then opened with electrocautery. The hall monitor was examined and had good incorporation. In the subpectoral pocket, there were no active fluid collections. All of the fluid was taken out of the hall monitor and this was taken out of the pocket. We had noticed that there was some lateral displacement of the hall monitor. Therefore, a capsulectomy was performed on the right side and then a capsulorrhaphy in order to medialized and push the implant superiorly. This was done with interrupted 2 -0 Vicryl pop sutures as well as a running 2-0 V-Loc suture. The pocket was then washed out with copious amounts of saline and a sizer was placed for guiding the size of the implant and inflated to 650 cc. The same procedure was then performed on the left side. This was the radiated side. Therefore, less pocket work was done. A full capsulotomy both superomedially and inferiorly was performed. The pocket was then washed out. No sutures were needed as the capsulorrhaphy on the left side. Another sizer was placed and this was inflated to 650 cc. Once we were happy with symmetry and size, we then chose Allergan implants SCF 650 for both sides. My nurseryman assistant and I then changed our gloves. We wiped the pockets and washed the pocket out with triple antibiotic saline as well as wiped the mastectomy skin flaps. The implants were then placed gently into the pocket and again examined for good symmetry and size. The AlloDerm junction was then closed with a running 2-0 Vicryl suture. The skin was then closed with 3-0 Monocryl subdermal and a running 4-0 Monocryl. The incisions were dressed with bacitracin and Mepilex Ag dressing. A surgical support bra was placed. The count was correct at the end of the case. There were no immediate complications. The patient will stay awake and be re-prepped for the vaginal hysterectomy portion. IV FLUIDS: A liter. COMPLICATIONS: None. /[id number]/MODL MTDD
[2017-12-12] MEDS ORDERED: ONDANSETRON 4 MG/2 ML VIAL IVP PRN ×2 (10:58→13:30)
[2017-12-12] MEDS ORDERED: PROMETHAZINE HCL 25 MG/ML INJ IVP PRN (10:58)
[2017-12-12] MEDS ORDERED: NALOXONE HCL 0.4 MG/ML INJ IVP PRN ×2 (10:58→13:30)
--- NOTE | 2017-12-12 11:17 | POSTANESTH ---
Post Anesthetic Evaluation Cardiovascular Status: Normal, Stable, Tx Over/Under Hydration Level of Consciousness/Mental Status: Can Participate in Eval, Mildly Sleepy, Arousable Pain Control: Adequate, Prn Tx Ordered Nausea/Vomiting Control: Adequate, Prn Tx Ordered Complications Possibly Related to Anesthesia: None Noted
[2017-12-12] MEDS ORDERED: ONDANSETRON 4 MG/2 ML VIAL ONE (11:22)
--- NOTE | 2017-12-12 11:40 | POSTOPPROG ---
Post Op Note Date of Operation: 12/12/17 Surgeon: Arelis Wei Upholsterer Limousine And Hearse: VANITA WONG Anesthesiologist: Sameer wARM Anesthesia: IV Sedation, LMA, Spinal Pre-op Diagnosis: METASTATEIC BREAST CA, brca POS Post-op Diagnosis: SAME Indication: ABOVE Procedure: TVH/BSO Findings: nl tissue Inf/Abcess present in the surg proc area at time of surgery?: No Depth: Superfical (Skin SQ)
[2017-12-12] MEDS ORDERED: HYDROCODONE/APAP 5/325 TAB PO PRN (11:41)
[2017-12-12] MEDS: fentaNYL 100 MCG/2 ML INJ IVP PRN ×2 (11:45→11:51)
--- NOTE | 2017-12-12 12:46 | GOP ---
DATE OF OPERATION: 12/12/2017 SURGEON: Arelis Wei MD LEGAL DOCUMENT SPECIALIST: Iliana Sanders, [facility] ANESTHESIA: Spinal, morphine intrathecal, as well as IV general with LMA. ANESTHESIOLOGIST: Dr. José Nuñez. PREOPERATIVE DIAGNOSIS: 1. Patient is BRCA1 positive. 2. Has a history of metastatic breast cancer, desires prophylactic removal of ovaries and uterus. POSTOPERATIVE DIAGNOSIS: 1. Patient is BRCA1 positive. 2. Has a history of metastatic breast cancer, desires prophylactic removal of ovaries and uterus. PROCEDURE PERFORMED: Total vaginal hysterectomy, bilateral salpingo-oophorectomy. FINDINGS: Normal slightly enlarged uterus and bilateral fallopian tubes. ESTIMATED BLOOD LOSS: About 50 cc. INDICATIONS: Patient is a 37-year-old, G2, P2, who was diagnosed with triple negative breast cancer in 06/2016. Has received radiation, chemo, and has had bilateral mastectomies. Needs to have a vanna st reconstruction and would like to plan her prophylactic TVH/BSO at the same time, and we will proce ed with that today. DESCRIPTION OF PROCEDURE: With informed consent signed, patient was taken to the OR and placed under spinal, then general anesthesia, placed in the supine position, and Dr. Chang Cortes performed a breast reconstruction. When this was completed, patient was then placed in the high dorsal lithotomy position, prepped and draped in usual sterile fashion and Maguire catheter placed. A weighted speculum placed in the vagina and posterior colpotomy performed entering the posterior cul -de-sac sharply. The edges of the vaginal cuff of the vaginal mucosa were approximated to the underl adnia nearby perineum in a running locking suture for hemostasis. Next, the Bruceark retractor was pl aced into the cul-de-sac and the uterosacral ligament clamped on each side, cut and suture ligated. The cardinal ligaments on each side clamped, cut, and suture ligated. The vessels of the broad ligam ent clamped, cut, and suture ligated, and then, the anterior cul-de-sac entered sharply and then the 2 leaves of the broad ligament reapproximated and clamped, cut and suture ligated. At this point, the visibility was difficult as the uterus was quite large, so the uterus was inverted and so the fundal part of the uterus was at the introitus of the vagina. The uteroovarian ligament and fallopian tube were clamped, cut on each side, and suture ligated, and then, the uteroovarian ped icle was clamped, cut, and suture ligated, and then more of the broad ligament was clamped, cut, and suture ligated, and then, the uterus and cervix were removed. Each pedicle was noted to be hemostatic, and then, the right ovary and fallopian tube were grasped wi th a Angella and a Farzad clamp clamped across the infundibulopelvic ligament and then was free tied and suture ligated, and hemostasis was noted. The same was done on the left. A second stitch was pl aced into the peritoneum at that place as there was little bit of bleeding. Inspection of all the pe dicles noted to be hemostatic, and then, the Aardvark retractors removed and the small retractor plac ed, and then, Lim culdoplasty done grasping the vaginal cuff at 6 o'clock, grasping the left utero sacral ligament, several bites of the peritoneal floor, and then the right uterosacral ligament and t hen coming out the site of origin. This was tied down and this obliterated the cul-de-sac and then f [id number] sutures were used to close the rest of the vaginal cuff. Again, hemostasis was noted. Patient was placed in supine position, awakened in the operating room, taken to the recovery room i n stable condition, tolerated procedure well. COMPLICATIONS: None. /[id number]/MODL
[2017-12-12] MEDS ORDERED: RN MESSAGE:REGARDING ANALGESIC ORDERING DR MISC SCH (13:30)
[2017-12-12] MEDS: LR 1,000 ML IV SCH (13:53)
[2017-12-12] MEDS ORDERED: IBUPROFEN 600 MG TAB PO SCH (14:00)
--- NOTE | 2017-12-12 15:03 | ASMTCMCOM ---
CM Note CM Note Notes: Patient chart reviewed for discharge planning purposes. 37 year old female had previous underwent bilateral mastectomies with reconstructive surgery admitted under obs s/p tissue frame stylist exchange. No current needs identified. CM available should needs arise. Plan: Likely dc to home independently when medically cleared for discharge. Date Signed: 12/12/2017 02:57 PM Electronically Signed By:Nikki Barba RN
[2017-12-12] MEDS: RN MESSAGE:DATE/TIME OF ADMIN MISC SCH ×2 (15:47→19:30)
[2017-12-13] MEDS: LR 1,000 ML IV SCH (00:12)
[2017-12-13] MEDS: oxyCODONE IR 5 MG TAB PO PRN ×2 (04:34→08:15)
[2017-12-13 08:54] VITALS: BP 95/65
--- NOTE | 2017-12-13 10:47 | PDPAINCON ---
Pain Management Consultation Patient referred by : Eriberto - Subjective Pain at rest (/10): 2 Pain with activity (/10): 3 Pain is: low, well controlled Activity: able to ambulate - Objective Technique: spinal opioid Sensory and motor exam: block has resolved, no apparent ill effects Vital signs: stable
--- NOTE | 2017-12-13 11:28 | SOAPPROG ---
SOAP Progress Note Assessment/Plan: Assessment: POD #1 doing well , konrad reg diet and bladder function nl , ambulating and no nausea and good pain control Plan:D/c home and f/u in 2 weeks , d/c with tramadol 12/13/17 11:26 Subjective: ate breakfast and no nausea, pos gas , no bleeding Objective: lungs CTA , abd sofr few BS no bleeding Vital Signs Temp Pulse Resp BP Pulse Ox 36.9 C 70 16 95/65 L 95 12/13/17 08:50 12/13/17 08:50 12/13/17 08:50 12/13/17 08:50 12/13/17 08:50 Laboratory Results 12/13/17 04:15 12/12/17 12/13/17 12/14/17 05:59 05:59 05:59 Intake Total 5580 320 Output Total 4100 600 Balance 1480 -280 ICD10 Worksheet Patient Problems: Problems Problem Status Onset Breast cancer Acute
[2017-12-13] MEDS: IBUPROFEN 600 MG TAB PO SCH ×2 (12:07→13:22)
--- NOTE | 2017-12-13 12:14 | ASMTLACE ---
LACE Length of stay for Answers: 1 day current admission Comorbidities - select Answers: Any tumor (including all that apply lymphoma or leukemia) Score: 3 Date Signed: 12/13/2017 12:09 PM Electronically Signed By:Nikki Barba RN
--- NOTE | 2017-12-13 12:15 | ASMTCMCOM ---
CM Note CM Note Notes: Chart reviewed. Patient medically cleared for dc. Met with patient who declines needing anything and she is connected with our navigator Adelaida Cunningham RN. CM available should other needs arise. Plan: DC to home no needs. Date Signed: 12/13/2017 12:13 PM Electronically Signed By:Nikki Barba RN
[2017-12-15] MEDS ORDERED: PATCH REMOVAL 1 EA PATCH TD SCH (07:05)
== END 2017-12-13 12:00 | disposition home or self-care (01) ==
LOC: F3N 05:39 → F1N 11:39
PROVIDERS: ADMIT Obstetrics & Gynecology Gynecology; ATTEND Obstetrics & Gynecology Gynecology
PROC: 0UT97ZZ Resection of Uterus, Via Natural or Artificial Opening (ICD-10-PCS; principal; 2017-12-12 07:15)
PROC: 0UT27ZZ Resection of Bilateral Ovaries, Via Natural or Artificial Opening (ICD-10-PCS; principal; 2017-12-12 07:15)
PROC: 0UT77ZZ Resection of Bilateral Fallopian Tubes, Via Natural or Artificial Opening (ICD-10-PCS; principal; 2017-12-12 07:15)
PROC: 0HPT0NZ Removal of Tissue Expander from Right Breast, Open Approach (ICD-10-PCS; 2017-12-12 07:15)
PROC: 0HPU0NZ Removal of Tissue Expander from Left Breast, Open Approach (ICD-10-PCS; 2017-12-12 07:15)
PROC: 0HRV0JZ Replacement of Bilateral Breast with Synthetic Substitute, Open Approach (ICD-10-PCS; 2017-12-12 07:15)
DX: Z08 Encounter for follow-up examination after completed treatment for malignant neoplasm (principal); Z85.3 Personal history of malignant neoplasm of breast; Z15.01 Genetic susceptibility to malignant neoplasm of breast; Z92.3 Personal history of irradiation
CPT/HCPCS: 19380; 58262; G0378; C1789; J0171; J0690; J1100; J1580; J2250; J2274; J2405; J2704; J3010; Q9968

== ENCOUNTER 2018-01-04 15:21 | Emergency (ER) | payer OTHER ==
[2018-01-04 17:00] LABS: PLATELET COUNT 257 10^3/uL (150-400)
[2018-01-04] MEDS ORDERED: IOPAMIDOL (ISOVUE 370) 100 ML BTL IV ONE (17:14)
--- NOTE | 2018-01-04 18:15 | EDPHY ---
H & P Stated Complaint: SOB since 01/03/18, increased fatigue. Time Seen by Provider: 01/04/18 15:46 HPI/ROS: CHIEF COMPLAINT: Shortness of breath and fatigue HISTORY OF PRESENT ILLNESS: This is a 37-year-old female who was undergoing treatment for breast cancer. Her breast cancer was diagnosed in July of 2016. She underwent double mastectomy, radiation therapy chemotherapy, and is now on a targeted drug. She received a Zometa infusion on Sunday, 3 days ago. She underwent surgery 3 weeks ago--a breast implant exchange. She presents today concerned about shortness of breath that began yesterday. She notices this with minimal exertion. She also describes significant fatigue and states that she naps all day today. This is unusual for her. She has not had fever or cough. She denies urinary symptoms. She has not had calf pain or swelling. Her surgical sites have been healing well. REVIEW OF SYSTEMS: A ten system review of systems was performed and is negative with the exception of the items mentioned in the HPI. Past medical history: 1. Breast cancer 2. Hypothyroid Past surgical history: 1. Bilateral mastectomy, undergoing reconstruction 2. Hysterectomy Family history: BRACA Social history: She lives with her and 2 children. She does not use tobacco products. General Appearance: Alert. Vital signs reviewed. Temperature 36.8 degrees, heart rate 81, respiratory rate 16, blood pressure 105/85, oxygen saturation 98% . Eyes: Pupils equal and round, no conjunctival injection, no discharge. Anicteric. ENT, Mouth: Mucous membranes are moist, no oropharyngeal erythema or edema. Neck: No lymphadenopathy, supple. Respiratory: Lungs are clear to auscultation; no wheezes, rales, or rhonchi. Cardiovascular: Regular rate and rhythm; no murmur, rub, or gallop. Breasts: Surgical incisions healing well; no erythema or warmth, no drainage. Gastrointestinal: Abdomen is soft and nontender, no masses or organomegaly, bowel sounds normal. Skin: Warm and dry, no rashes on exposed skin, normal color. Back: Nontender to palpation over the thoracolumbar spine. No CVAT. Extremities: No lower extremity edema, no calf tenderness or swelling. Neurological: Alert and oriented. Moving all four extremities easily and equally. Psychiatric: Normal affect. - Personal History LMP (Females 10-55): Unknown Current Tetanus Diphtheria and Acellular Pertussis (TDAP): Yes Tetanus Vaccine Date: 2009 - Medical/Surgical History Hx Asthma: No Hx Chronic Respiratory Disease: No Hx Diabetes: No Hx Cardiac Disease: No Hx Renal Disease: No Hx Cirrhosis: No Hx Alcoholism: No Hx HIV/AIDS: No Hx Splenectomy or Spleen Trauma: No Other PMH: breast CA, hypothyroidism - Social History Smoking Status: Never smoked Constitutional: Initial Vital Signs Temperature (C) 36.8 C 01/04/18 15:27 Heart Rate 81 01/04/18 15:27 Respiratory Rate 16 01/04/18 15:27 Blood Pressure 105/85 H 01/04/18 15:27 O2 Sat (%) 98 01/04/18 15:27 O2 Delivery Mode Room Air Allergies/Adverse Reactions: codeine Allergy (Severe, Verified 11/08/17 10:20) Vomiting hydromorphone [From Dilaudid] Allergy (Verified 11/08/17 10:20) Hives Home Medications: Medication Instructions Recorded Multivitamins [Multivitamin (*)] 1 each PO DAILY 10/17/11 Levothyroxine [Synthroid 75 mcg 75 mcg PO DAILY06 01/19/17 (*)] Herbals/Supplements -Info Only 1 ea PO DAILY 11/08/17 Olaparib [Lynparza] 150 mg PO DAILY 11/08/17 Olaparib [Lynparza] 300 mg PO HS 11/08/17 [place]-3 Fatty Acids [Fish Oil 1000 1,000 mg PO DAILY 11/08/17 mg (*)] Medical Decision Making ED Course/Re-evaluation: 37-year-old female with a history of breast cancer and recent surgery for implant exchange to also underwent a Zometa infusion 3 days ago. She presents with shortness of breath and fatigue. Initial concern is for pulmonary embolus. I do not feel that a D-dimer will be helpful in this setting and am proceeding with CT angiogram of the chest. There is no evidence on exam or in her history of infection such as pneumonia. I have no reason to suspect ACS or CHF. I reviewed her CBC and chemistries. CT angiogram of the chest was performed and is negative for pulmonary embolus. This is reassuring news to the patient. I have spoken with the oncologist installation helper and it is felt that these all med as likely the culprit--causing her fatigue and possibly her dyspnea. She understands the danger signs and will return for re-evaluation if she has new or concerning symptoms. She will follow up with Oncology. - Data Points Laboratory Results: Laboratory Results 01/04/18 16:55 01/04/18 16:55 Point of Care Test Results: Chemistry 01/04/18 16:56 POC Sodium 144 mEq/L mEq/L (135-145) POC Potassium 3.6 mEq/L mEq/L (3.3-5.0) POC Chloride 106 mEq/L mEq/L (97-110) POC BUN 6 mg/dL L mg/dL (7-23) POC Creatinine 0.8 mg/dL mg/dL (0.6-1.0) POC Glucose 78 mg/dL mg/dL (70-100) ISTAT H&H 01/04/18 16:56 POC Hgb 13.6 gm/dL gm/dL (12.6-16.3) POC Hct 40 % % (38-47) Departure - Departure Disposition: Home, Routine, Self-Care Clinical Impression: Dyspnea on effort Fatigue Qualifiers: Fatigue type: unspecified Qualified Code(s): R53.83 - Other fatigue Condition: Good Instructions: Dyspnea (ED), Fatigue (ED) Additional Instructions: The CT scan of his chest does not show a blood clot in your lungs. I spoke with the oncology office. Blood thinners are not recommended at this time. It is likely that you shortness of breath and fatigue is related to you're medications, either the Zometa or the Olaparib. Check in with Dr. Arredondo on Sunday. Referrals: Ashlee Arredondo MD [Medical Doctor] - As per Instructions
[2018-01-04 18:25] VITALS: BP 97/69
== END 2018-01-04 18:23 | disposition home or self-care (01) ==
DX: R06.09 Other forms of dyspnea (principal); R53.83 Other fatigue; C50.919 Malignant neoplasm of unspecified site of unspecified female breast; E03.9 Hypothyroidism, unspecified; Z92.3 Personal history of irradiation; Z92.21 Personal history of antineoplastic chemotherapy; Z98.82 Breast implant status; Z98.890 Other specified postprocedural states; Z90.13 Acquired absence of bilateral breasts and nipples
CPT/HCPCS: 82435-PO; 82565-PO; 82947-PO; 84132-PO; 84295-PO; 84520-PO; 85014-PO; Q9967

== ENCOUNTER → 2018-01-25 | Outpatient (CLI) | payer OTHER ==
[~2018-01-25] MED LIST changes: -ACETAMINOPHEN 325 MG TAB PO PRN; -FLUMAZENIL 0.5 MG/5 ML MDV IVP ONE; -FLUMAZENIL 0.5 MG/5 ML MDV IVP PRN; +GADOBUTROL 10 ML VIAL IVP ONE; -LIDOCAINE 1% 300 MG/30 ML SDV ONE; -MEPERIDINE 25 MG/ML SYR IVP PRN; -MIDAZOLAM 2 MG/2 ML VIAL IVP PRN; -MIDAZOLAM 2 MG/2 ML VIAL ONE; -NALOXONE HCL 0.4 MG/ML INJ IVP PRN; -NALOXONE HCL 0.4 MG/ML INJ ONE; -NS 1,000 ML IV SCH; -ONDANSETRON 4 MG/2 ML VIAL IVP PRN; -ONDANSETRON 4 MG/2 ML VIAL ONE; -fentaNYL 100 MCG/2 ML INJ IVP PRN; -fentaNYL 100 MCG/2 ML INJ ONE
== END ==
LOC: FIMAGING 08:21
PROVIDERS: ATTEND Internal Medicine Hematology & Oncology
DX: C50.412 Malignant neoplasm of upper-outer quadrant of left female breast (principal); C79.51 Secondary malignant neoplasm of bone
CPT/HCPCS: A9585

== ENCOUNTER 2018-02-21 10:53 | Inpatient (IN) | payer OTHER ==
[2018-02-21] MEDS ORDERED: NS 1,000 ML IV ONE (11:11)
[2018-02-21] MEDS ORDERED: ONDANSETRON 4 MG/2 ML VIAL IVP ONE (11:11)
--- NOTE | 2018-02-21 11:41 | EDPHY ---
H & P Time Seen by Provider: 02/21/18 13:00 HPI/ROS: Chief complaint. Seizure Past Medical/Surgical History: Chief complaint. Seizure HPI. Patient is a 38-year-old female presents to the emergency department with for seizure. She has a history of metastatic breast cancer with mastectomy. She was at an exercise class today and developed right hand uncontrolled shaking that progressed to generalized tonic-clonic seizure. She has some left- sided headache. Denies chest pain or shortness of breath. She has known mets to the sacroiliac joint. She is undergoing chemotherapy. No recent fever. ROS 10 systems were reviewed and negative with the exception of the elements mentioned in the history of present illness Past medical history is significant for hypothyroid, breast cancer with mets to the SI joint, mastectomy, hysterectomy Social History: , nonsmoker, no alcohol Smoking Status: Never smoked Physical Exam: General Appearance: Alert pleasant well-developed female mild distress. Vital signs significant for heart rate 117 Eyes: Pupils equal and round no pallor or injection. ENT, Mouth: Mucous membranes are moist. Respiratory: There are no retractions, lungs are clear to auscultation. Cardiovascular: Regular rate and rhythm with tachycardia Gastrointestinal: Abdomen is soft and nontender, no masses, bowel sounds normal. Neurological: Awake and alert, sensory and motor exams grossly normal. Skin: Warm and dry, no rashes. Musculoskeletal: Neck is supple nontender. Extremities symmetrical, full range of motion. Psychiatric: Patient is oriented X 3, there is no agitation. Constitutional: Initial Vital Signs Temperature (C) 37.0 C 02/21/18 10:54 Heart Rate 117 H 02/21/18 10:54 Respiratory Rate 18 02/21/18 10:54 Blood Pressure 116/63 02/21/18 10:54 O2 Sat (%) 95 02/21/18 10:54 O2 Delivery Mode Nasal Cannula O2 (L/minute) 4 Allergies/Adverse Reactions: codeine Allergy (Severe, Verified 02/21/18 11:06) Vomiting hydromorphone [From Dilaudid] Allergy (Verified 02/21/18 11:06) Hives Home Medications: Medication Instructions Recorded Multivitamins [Multivitamin (*)] 1 each PO DAILY 10/17/11 Levothyroxine [Synthroid 75 mcg 75 mcg PO DAILY06 01/19/17 (*)] Herbals/Supplements -Info Only 1 ea PO DAILY 11/08/17 Olaparib [Lynparza] 150 mg PO DAILY 11/08/17 Olaparib [Lynparza] 150 mg PO HS 11/08/17 [place]-3 Fatty Acids [Fish Oil 1000 1,000 mg PO DAILY 11/08/17 mg (*)] Liothyronine Sodium [Cytomel 5 mcg 5 mcg PO DAILY 02/21/18 (*)] Zoledronic Acid [Zometa] 4 mg IV Q30D 02/21/18 Medical Decision Making - Diagnostics Imaging Results: Imaging Impressions Head CT 02/21/18 11:51 Impression: Large area of hypodensity in the deep hemispheric and subcortical white matter with mild mass effect in the left frontal parietal region toward the vertex. This could be secondary to underlying metastatic lesion or mass or less likely infarct. Recommend MRI without and with contrast for further evaluation. Results called and discussed with Dr. Esdras Metzger on February 21, 2018 at [address] shows lie or large area of hypodensity in the left frontal parietal region. Likely underlying metastatic lesion. No hemorrhage MRI is ordered Procedures: IV normal saline. Ativan IV as the patient is feeling anxious Seizure precautions IV Keppra ED Course/Re-evaluation: On re-evaluation patient remained stable. Patient and I discussed imaging and lab results. We discussed treatment plan including recommendation for admission. The she expresses understanding and agreement I consulted discussed case with hospitalist who agrees to the admission. I consulted discussed the case with Dr. Arredondo for Oncology who will see the patient in consultation Differential Diagnosis: 1st onset seizure in a woman with metastatic breast cancer. Likely this is metastatic. Plan is admission, seizure control, further imaging - Data Points Laboratory Results: Laboratory Results 02/21/18 11:30 02/21/18 11:30 02/21/18 02/21/18 02/21/18 11:30 11:30 11:30 WBC 5.59 10^3/uL 10^3/uL (3.80-9.50) RBC 4.07 10^6/uL L 10^6/uL (4.18-5.33) Hgb 13.8 g/dL g/dL (12.6-16.3) Hct 40.5 % % (38.0-47.0) MCV 99.5 fL fL (81.5-99.8) MCH 33.9 pg pg (27.9-34.1) MCHC 34.1 g/dL g/dL (32.4-36.7) RDW 13.2 % % (11.5-15.2) Plt Count 264 10^3/uL 10^3/uL (150-400) MPV 9.6 fL fL (8.7-11.7) Neut % (Auto) 75.0 % H % (39.3-74.2) Lymph % (Auto) 19.5 % % (15.0-45.0) [place] % (Auto) 3.8 % L % (4.5-13.0) Eos % (Auto) 1.1 % % (0.6-7.6) Baso % (Auto) 0.2 % L % (0.3-1.7) Nucleat RBC Rel Count 0.0 % % (0.0-0.2) Absolute Neuts (auto) 4.20 10^3/uL 10^3/uL (1.70-6.50) Absolute Lymphs (auto) 1.09 10^3/uL 10^3/uL (1.00-3.00) Absolute Monos (auto) 0.21 10^3/uL L 10^3/uL (0.30-0.80) Absolute Eos (auto) 0.06 10^3/uL 10^3/uL (0.03-0.40) Absolute Basos (auto) 0.01 10^3/uL L 10^3/uL (0.02-0.10) Absolute Nucleated RBC 0.00 10^3/uL 10^3/uL (0-0.01) Immature Gran % 0.4 % % (0.0-1.1) Immature Gran # 0.02 10^3/uL 10^3/uL (0.00-0.10) Sodium 140 mEq/L mEq/L (135-145) Potassium 3.8 mEq/L mEq/L (3.5-5.2) Chloride 106 mEq/L mEq/L (97-110) Carbon Dioxide 19 mEq/l L mEq/l (22-31) Anion Gap 15 mEq/L H mEq/L (6-14) BUN 12 mg/dL mg/dL (7-23) Creatinine 0.8 mg/dL mg/dL (0.6-1.0) Estimated GFR > 60 Glucose 148 mg/dL H mg/dL (70-100) Calcium 9.4 mg/dL mg/dL (8.5-10.4) Magnesium 2.0 mg/dL mg/dL (1.6-2.3) Medications Given: Discontinued Medications Sodium Chloride (Ns) 1,000 mls @ 0 mls/hr IV EDNOW ONE; Wide Open PRN Reason: Protocol Stop: 02/21/18 11:12 Last Admin: 02/21/18 11:15 Dose: 1,000 mls Levetiracetam (Keppra (Premix)) 100 mls @ 400 mls/hr IV EDNOW ONE Stop: 02/21/18 13:20 Last Admin: 02/21/18 13:38 Dose: 100 mls Lorazepam (Ativan Injection) 1 mg IVP EDNOW ONE Stop: 02/21/18 11:51 Last Admin: 02/21/18 12:05 Dose: 1 mg Ondansetron HCl (Zofran) 4 mg IVP EDNOW ONE Stop: 02/21/18 11:12 Last Admin: 02/21/18 11:15 Dose: 4 mg Departure - Departure Disposition: [facility] Clinical Impression: Seizure Breast cancer Qualifiers: Breast location: unspecified site of breast Estrogen receptor status: unspecified Patient sex: female Laterality: unspecified laterality Qualified Code(s): C50.919 - Malignant neoplasm of unspecified site of unspecified female breast Condition: Fair
[2018-02-21] MEDS ORDERED: LORazepam 2 MG/ML INJ IVP ONE (11:50)
[2018-02-21 11:55] LABS: PLATELET COUNT 264 10^3/uL (150-400)
[2018-02-21] MEDS ORDERED: levETIRAcetam 500MG/NACL 100 ML IV ONE (13:06)
[2018-02-21] MEDS ORDERED: ONDANSETRON DISINTEGRATING 4 MG TAB PO PRN (13:34)
[2018-02-21] MEDS ORDERED: ACETAMINOPHEN 325 MG TAB PO PRN (13:34)
--- NOTE | 2018-02-21 13:41 | PDGENHP ---
History and Physical - Chief Complaint Seizure - History of Present Illness 38 y/o female presents to the ED after experiencing a first-time seizure. She was in an exercise class when this happened - reports her right hand began to shake, she sat down, and then experienced a generalized tonic-clonic seizure that lasted approximately two minutes. She does report left-sided mild headache and isn't sure whether she hit her hit during the seizure. She did not bite her tongue. Denies SOB, chest pains, vision changes. Head CT/Brain MRI w/ and w/o contrast today reveals left posterosuperior frontal lobe 18 x 18 mm hemorrhagic cerebral metastasis with surrounding vasogenic edema and tiny right anterior superior frontal lobe 5 mm hemorrhagic metastasis suspected. No hydrocephalus, midline shift or herniation noted. She has history of metastatic breast cancer and SI joint. Oncologist: Dr. Ashlee Arredondo She is being admitted to inpatient for further evaluation and management. Past Medical/Surgical History 1. 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 Bilateral mastectomy and reconstruction (February 2017) 3. Radiation and chemotherapy (ending in June 2017). On targeted drug therapy currently (Olaparib) 4. Replaced tissue expanders and THERESE (December 2017) 5. MRI Pelvis w/ and w/o contrast (January 2018): osseous metastatic disease right iliac bone adjacent to right sacroiliac joint and corresponds to abnormal glucose activity on PET scans 6. ADHD 7. Hypothyroidism 8. Malignant melanoma 9. Anxiety Social 1. Occupation: massage therapist 2. Lives in [place] with her , [place], and two daughters 3. Denies tobacco use. Vital Signs 103/65 81 HR 16 Respirations 97% 2L NC History Information - Allergies/Home Medication List Allergies/Adverse Reactions: codeine Allergy (Severe, Verified 02/21/18 11:06) Vomiting hydromorphone [From Dilaudid] Allergy (Verified 02/21/18 11:06) Hives Home Medications: Multivitamins [Multivitamin (*)] 1 each PO DAILY 10/17/11 [Last Taken 02/21/18] Levothyroxine [Synthroid 75 mcg (*)] 75 mcg PO DAILY06 01/19/17 [Last Taken ] Herbals/Supplements -Info Only 1 ea PO DAILY 11/08/17 [Last Taken 1 Week Ago ~] Olaparib [Lynparza] 150 mg PO BID 11/08/17 [Last Taken 02/20/18] [place]-3 Fatty Acids [Fish Oil 1000 mg (*)] 1,000 mg PO DAILY 11/08/17 [Last Taken 02/21/18] Liothyronine Sodium [Cytomel 5 mcg (*)] 5 mcg PO DAILY 02/21/18 [Last Taken ] Zoledronic Acid [Zometa] 4 mg IV Q30D 02/21/18 [Last Taken 02/14/18] I have personally reviewed and updated: family history, medical history, social history, surgical history Past Medical History: See HPI list - Surgical History Additional surgical history: See HPI List - Family History Additional family history: Great-grandmothers both with postmenopausal breast cancer. Paternal grandmother had colangiocarcinoma - Social History Smoking Status: Never smoked Alcohol Use: None Drug Use: None Review of Systems Review of Systems: ROS: 10pt was reviewed & negative except for what was stated in HPI & below Constitutional: Reports: recent injury, recent illness, other (Tired) EENMT: Reports: no symptoms Cardiac: Reports: no symptoms Respiratory: Reports: no symptoms Gastrointestinal: Reports: no symptoms Genitourinary: Reports: no symptoms Muscolosketal: Reports: no symptoms Skin: Reports: no symptoms Neurological: Reports: headache Hematologic/Lymphatic: Reports: no symptoms Immunologic/Allergy: Reports: other (See Allergy list) Physical Exam Physical Exam: Imaging reviewed. See HPI list. Temp Pulse Resp BP Pulse Ox 37.0 C 81 18 116/63 99 02/21/18 10:54 02/21/18 13:10 02/21/18 13:10 02/21/18 13:10 02/21/18 13:10 O2 (L/minute) 4 Constitutional: no apparent distress, appears nourished, other (Pleasant cooperative) Eyes: PERRL, anicteric sclera, EOMI Ears, Nose, Mouth, Throat: moist mucous membranes, hearing normal, ears appear normal, no oral mucosal ulcers Cardiovascular: regular rate and rhythym, no murmur, rub, or gallop, No edema Peripheral Pulses: 2+: dorsalis-pedis (R) (Radial 2+), dorsalis-pedis (L) ( Radial 2+) Respiratory: no respiratory distress, no rales or rhonchi, clear to auscultation Gastrointestinal: soft, non-tender abdomen, no palpable masses, other ( Hypoactive bowel sounds) Genitourinary: no bladder fullness, no bladder tenderness Skin: warm, normal color, no rashes or abrasions, no fluctuance, no induration, No mottled Musculoskeletal: full muscle strength, no muscle tenderness, normal joint ROM, no joint effusions Neurologic: AAOx3, sensation intact bilaterally, CN II-XII Intact Psychiatric: flat affect, other (The pt's two young daughter had just arrived in her room and they were not told about the pt's condition yet. The pt had a flat affect and appeared to be fatigued.) Lymph, Heme, Immunologic: no cervical LAD, no supraclavicular LAD Lab Data & Imaging Review 02/21/18 11:30 02/21/18 11:30 WBC 5.59 10^3/uL (3.80-9.50) 02/21/18 11:30 RBC 4.07 10^6/uL (4.18-5.33) L 02/21/18 11:30 Hgb 13.8 g/dL (12.6-16.3) 02/21/18 11:30 Hct 40.5 % (38.0-47.0) 02/21/18 11:30 MCV 99.5 fL (81.5-99.8) 02/21/18 11:30 MCH 33.9 pg (27.9-34.1) 02/21/18 11:30 MCHC 34.1 g/dL (32.4-36.7) 02/21/18 11:30 RDW 13.2 % (11.5-15.2) 02/21/18 11:30 Plt Count 264 10^3/uL (150-400) 02/21/18 11:30 MPV 9.6 fL (8.7-11.7) 02/21/18 11:30 Neut % (Auto) 75.0 % (39.3-74.2) H 02/21/18 11:30 Lymph % (Auto) 19.5 % (15.0-45.0) 02/21/18 11:30 [place] % (Auto) 3.8 % (4.5-13.0) L 02/21/18 11:30 Eos % (Auto) 1.1 % (0.6-7.6) 02/21/18 11:30 Baso % (Auto) 0.2 % (0.3-1.7) L 02/21/18 11:30 Nucleat RBC Rel Count 0.0 % (0.0-0.2) 02/21/18 11:30 Absolute Neuts (auto) 4.20 10^3/uL (1.70-6.50) 02/21/18 11:30 Absolute Lymphs (auto) 1.09 10^3/uL (1.00-3.00) 02/21/18 11:30 Absolute Monos (auto) 0.21 10^3/uL (0.30-0.80) L 02/21/18 11:30 Absolute Eos (auto) 0.06 10^3/uL (0.03-0.40) 02/21/18 11:30 Absolute Basos (auto) 0.01 10^3/uL (0.02-0.10) L 02/21/18 11:30 Absolute Nucleated RBC 0.00 10^3/uL (0-0.01) 02/21/18 11:30 Immature Gran % 0.4 % (0.0-1.1) 02/21/18 11:30 Immature Gran # 0.02 10^3/uL (0.00-0.10) 02/21/18 11:30 Sodium 140 mEq/L (135-145) 02/21/18 11:30 Potassium 3.8 mEq/L (3.5-5.2) 02/21/18 11:30 Chloride 106 mEq/L (97-110) 02/21/18 11:30 Carbon Dioxide 19 mEq/l (22-31) L 02/21/18 11:30 Anion Gap 15 mEq/L (6-14) H 02/21/18 11:30 BUN 12 mg/dL (7-23) 02/21/18 11:30 Creatinine 0.8 mg/dL (0.6-1.0) 02/21/18 11:30 Estimated GFR > 60 02/21/18 11:30 Glucose 148 mg/dL (70-100) H 02/21/18 11:30 Calcium 9.4 mg/dL (8.5-10.4) 02/21/18 11:30 Assessment & Plan Plan: 1. Seizure secondary to metastatic cancer -Spoke w/ neurology: Dr. Jaleel Hernandes recommends no driving for 90 days and seizure precautions (no bathing by oneself, etc) -Consulted oncology: spoke with Dr. Tigre Lopez who will see the pt today. -Consulted neurosurgery; Dr. Lopez spoke with Dr. Rushing who he/ or Dr. Ballard will evaluate the pt either tonight or tomorrow for possible surgery -MRI Head w/ and w/o contrast -Seizure precautions -Keppra 750 mg BID -Decadron IVP -CBC/CMP tomorrow -Continuing olaparib, but holding zoledronic acid for now until oncology recommends otherwise 2. Hypothyroid -May continue levothyroxine and liothyronine 3. Headache: may use Tylenol PRN Diet: NPO VTE ppx: SCDs Code: Full Dispo: Admit to inpatient
[2018-02-21] MEDS ORDERED: GADOBUTROL 10 ML VIAL IVP ONE (14:02)
[2018-02-21] MEDS ORDERED: *PHM DO NOT USE-DEXAMETHASONE 0.2 MG/ML IV PED/NEWBORN SYR IV ONE (15:35)
[2018-02-21] MEDS ORDERED: D5W IV ONE (16:00)
[2018-02-21] MEDS ORDERED: DEXAMETHASONE IV ONE (16:00)
--- NOTE | 2018-02-21 16:09 | PDMN ---
Medical Necessity Medical necessity: MCG: [facility] oncology- new onset Sz. MRI shows L posterosuperior frontal lobe 18X18 enhancing heterogenous hemorrhagic cerebral mets with surrounding vasogenic edema, and a tiny R anterior superior frontal lobe 5mm hemorrhagic mets suspected. anticipate > 2 MN ongoing med nec care further eval and tx onc. consult pend., neuro consult pend.
--- NOTE | 2018-02-21 16:54 | GCON ---
INPATIENT ONCOLOGY CONSULTATION DATE OF CONSULTATION: 02/21/2018 REFERRING PHYSICIAN: Dr. Dawn Bower OUTPATIENT ONCOLOGIST: Dr. Ashlee Arredondo. REASON FOR CONSULTATION: Brain metastasis from breast cancer. HISTORY OF PRESENT ILLNESS: The patient is a 38-year-old woman with metastatic triple negative breast cancer. She was in her usual state of health until this morning while she was in an exercise class and developed some repetitive motions in her right hand. She then lost consciousness and appeared to have a seizure as described by other participants in the class. She was brought to the emergency department for evaluation. A head CT showed an area of white matter hypodensity in the left side of the brain measuring 4 cm. A brain MRI revealed an 18 mm tumor with surrounding vasogenic edema out to 35 mm. There was also a small right-sided lesion measuring 5 mm. She was started on Keppra. She says she feels tired but otherwise back to her baseline. She denies having any symptoms prior to this morning. Her oncologic history is as follows: She presented with a T2 N0 triple negative breast cancer, though there was a 9 mm sternal lesion. She received Adriamycin and Cytoxan, followed by Taxol, and then underwent bilateral mastectomy. There was 1.1 cm of residual tumor. She underwent post-mastectomy radiation therapy and received several months of Xeloda chemotherapy, but unfortunately, developed progressive disease, with an asymptomatic lesion in the right iliac bone. She was found to have a deleterious BRCA1 mutation at the time of diagnosis and, therefore, was started on treatment with olaparib on September 27, 2017. A recent PET-CT scan showed that this lesion was enlarging somewhat, but there were no new lesions. The plan was for her to do stereotactic radiosurgery to the area and continue on the olaprib. Her radiation oncologist for the stereotactic treatment is Dr. Ivis Malcolm. She has not yet started that treatment. PAST MEDICAL HISTORY: Otherwise unremarkable. CURRENT MEDICATIONS: Include Keppra and Zofran. ALLERGIES: She is allergic to hydromorphone and codeine. FAMILY HISTORY: Unremarkable. SOCIAL HISTORY: She is a nonsmoker, nondrinker, lives with her and children. REVIEW OF SYSTEMS: Aside from pertinent positives in the HPI, a 14-point review of systems was negative. EXAMINATION: VITAL SIGNS: Her temperature was 37, blood pressure 103/65, oxygen saturation 97% on 2 L. Respiratory rate was 16. GENERAL: She was well appearing, in no acute distress. HEENT: Sclerae were anicteric. Oropharynx was clear. NECK: Supple, without lymphadenopathy. LUNGS: Clear to auscultation bilaterally. CARDIAC: Regular rate and rhythm. No murmurs, gallops, or rubs. ABDOMEN: Normoactive bowel sounds. Was nontender, nondistended. EXTREMITIES: Without edema. NEUROLOGIC: She is alert and oriented x3. Cranial nerves 2-12 intact. Strength, sensation, and rapid alternating movements were normal. LABORATORY DATA: CBC was normal. Basic metabolic panel was remarkable for sodium 140, potassium 3.8, chloride 106, bicarb 19, BUN of 12, creatinine 0.8, glucose of 148. IMPRESSION: This is a 38-year-old woman with known metastatic triple negative breast cancer, now presents with seizure caused by brain metastases. The tumors are obviously due to the breast cancer. She has received Keppra, and I ordered dexamethasone to be started to reduce the vasogenic edema. I have talked to Dr. Richards of Radiation Oncology and left a message for Dr. Rushing of Neurosurgery. The brain tumors will need to be treated with either surgery, followed by stereotactic radiosurgery, or radiation therapy alone. I will await Dr. Rushing's opinion on the best management. She will continue on high-dose steroids to reduce vasogenic edema until the completion of any planned radiation therapy. It would be reasonable to continue her on her current systemic therapy of olaprib as that drug may not penetrate the [employer] well , and there is no other evidence of new metastasis outside the [employer]. However, I would defer that decision to Dr. Arredondo, her primary outpatient oncologist. Thank you for this consultation. We will continue to follow the patient with you closely while she is in the hospital. /[id number]/MODL MTDD
[2018-02-21] MEDS ORDERED: ZOLEDRONIC ACID 4 MG IV SCH (17:15)
--- NOTE | 2018-02-21 18:13 | HOSPPROG ---
Hospitalist Progress Note Assessment/Plan: Patient seen and examined. I have discussed with Sarah Bower and I agree with her note. Objective: Vital Signs Temp Pulse Resp BP Pulse Ox 37.0 C 81 16 103/65 97 02/21/18 10:54 02/21/18 15:08 02/21/18 15:08 02/21/18 15:08 02/21/18 15:08 02/20/18 02/21/18 02/22/18 05:59 05:59 05:59 Intake Total 1100 Balance 1100 ICD10 Worksheet Patient Problems: Problems Problem Status Onset Breast cancer Acute Dyspnea on effort Acute Fatigue Acute Seizure Acute
[2018-02-21] MEDS: levETIRAcetam 500 MG TAB PO SCH (20:25)
[2018-02-21] MEDS: DEXAMETHASONE 4 MG TAB PO SCH (20:28)
[2018-02-21] MEDS ORDERED: levETIRAcetam 500 MG TAB PO SCH (21:00)
[2018-02-21] MEDS ORDERED: OLAPARIB 150 MG PO SCH ×2 (21:00)
[2018-02-21] MEDS: LORazepam 0.5 MG TAB PO PRN (22:27)
[2018-02-22] MEDS: LEVOTHYROXINE 75 MCG TAB PO SCH (04:41)
[2018-02-22] MEDS: DEXAMETHASONE 4 MG TAB PO SCH ×4 (04:41→21:37)
--- NOTE | 2018-02-22 06:03 | GCON ---
DATE OF CONSULTATION: 02/21/2018 CONSULTING SERVICE: Hospitalist Medicine and Oncology. REASON FOR CONSULT: Seizure and brain tumor. HISTORY OF PRESENT ILLNESS: The patient is an unfortunate 38-year-old female with triple negative br east cancer, who has a known right iliac bone metastasis next to the right SI joint. She is pending stereotactic radiosurgery with Dr. Roxane Malcolm for this lesion. She was in exercise class earlier today and began having focal neurologic seizure-type activity with her right hand shaking uncontroll ably and then she reportedly had a generalized tonic-clonic seizure that lasted 2 minutes. She was b rought to the emergency room and brain scans demonstrated a left posterior frontal likely metastasis just in front of somatosensory cortex with significant surrounding vasogenic edema and a small right frontal hemorrhagic mass as well. She has been admitted and Dr. Cruz has seen her and asked for my consultation. She is back at her baseline and states she is just a little sore, but otherwise is feeling her usual self. 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 CODE STATUS: Full. SOCIAL HISTORY: Massage therapist. Lives in [place] with and 2 daughters. Denies tobacco . ALLERGIES: Codeine and hydromorphone. FAMILY HISTORY: Great grandmothers with postmenopausal breast cancer. Paternal grandmother had chol angiocarcinoma. REVIEW OF SYSTEMS: Ten points reviewed and negative unless stated in HPI. PHYSICAL EXAM: Vitals: Afebrile, blood pressure 103/65, heart rate 81, respiratory rate 16, saturat ing 97% on nasal cannula. Neurologic: Awake, alert and oriented x3. Appears stated age. No acute distress. Normal fluent speech. Normal cranial nerves. 5 out of 5 strength with the exception of s ome 4+ out of 5 right arm and hand strength and 4++ out of 5 leg and foot strength. Endorses normal sensory exam. No abnormal reflexes. No cerebellar findings. Gait is deferred. LABS: White blood cells 5.6, hemoglobin 13.8, platelet count 264. Sodium 140, potassium 3.8, BUN 12 , creatinine 0.8, glucose 148. REVIEW OF IMAGING: I reviewed the patient's MRI with and without contrast and agree with an approxim ately 2 cm enhancing mass in the prefrontal region with significant surrounding vasogenic edema and a smaller lesion in the right anterior superior frontal region with some hemorrhagic component to it. IMPRESSION AND PLAN: The patient is a 38-year-old female with breast cancer, a right iliac met adjac ent to the right sacroiliac joint and now with a first-time seizure discovered to have 2 likely mets in her brain, the most significant of which is in the prefrontal region of the left frontal lobe with significant surrounding vasogenic edema. She is nearly back to her baseline now on steroids and Kep pra. I will speak with Dr. Cruz, but given the amount of vasogenic edema surrounding this lesion , it may be beneficial to take it out prior to considerations of stereotactic radiosurgery. The othe r lesion certainly will need stereotactic radiosurgery if we are planning on treating that. There is risk with surgery that could include paralysis/paresis of her right side as this lesion is quite michelle se to the primary motor cortex. However, I do believe that surgery could probably be safely performe d as long as they are willing to take that risk. I will also speak to my partner, Dr. Demario Garcia, who is a fellowship training cranial specialist and see if he is of the same opinion. Between he and I, I am sure we will be able to take care of the patient as soon as possible. Following closely mamta lizama. /[id number]/MODL
--- NOTE | 2018-02-22 07:44 | NEUSURGPN ---
Assessment/Plan: 38 yo female with breast cancer with seizure MRI Brain: Approximately 2 cm enhancing mass in the prefrontal region of the left frontal lobe with surrounding vasogenic edema and a smaller lesion in the right anterior superior frontal region - neuro stable - continue Decadron - Keppra - recommend craniotomy for resection of left frontal brain met - Dr. Rushing/Dr. Garcia are working with OR for a surgery time- likely this , if not then Sunday Discussed with Dr. Rushing. Subjective: Mild headache. No nausea/vomiting. Objective: Awake. Alert. PERRL. EOMI Facial expression symmetrical Muscle strength full at 5/5 Sensation intact - Physician Discussed Patient with Dr.: Rushing Neurosurgery Physical Exam - Vitals, I&O, Labs I and O 02/21/18 02/22/18 02/23/18 05:59 05:59 05:59 Intake Total 1500 Balance 1500 Weight 86.183 kg Intake: Oral (ml) 400 IV Infused (ml) 1100 Other: Number of Voids Toilet 1 Vital Signs Temp Pulse Resp BP Pulse Ox 36.8 C 77 18 94/60 L 93 02/22/18 04:00 02/22/18 04:00 02/22/18 04:00 02/22/18 04:00 02/22/18 04:00 ICD10 Worksheet Patient Problems: Problems Problem Status Onset Breast cancer Acute Seizure Acute Dyspnea on effort Acute Fatigue Acute
[2018-02-22 08:22] LABS: PLATELET COUNT 239 10^3/uL (150-400)
[2018-02-22] MEDS: LIOTHYRONINE SODIUM 5 MCG TAB PO SCH (09:33)
[2018-02-22] MEDS: levETIRAcetam 500 MG TAB PO SCH ×2 (09:33→21:37)
[2018-02-22] MEDS: OLAPARIB 150 MG PO SCH ×2 (09:35→21:36)
--- NOTE | 2018-02-22 09:51 | SOAPPROG ---
Downtime Inpatient MD Late Entry SOAP Note: PHONE CONSULTATION NOTE (patient not seen) performed on 02/21/2018: I spoke with the hospitalist, Sarah BERGERON, yesterday were in this patient. The patient unfortunately has metastatic breast cancer with new metastatic lesions the brain presenting with 1st seizure. She is on Keppra 750 mg p. O. Twice daily. She has seen Neurosurgery and Oncology. Recommendations: 1. Continue Keppra 750 mg twice daily indefinitely. She should be counseled regarding possible mood changes/irritability type side effects. 2. 90 days of [address] restrictions and seizure precautions. 3. She can follow up with Neurology as an outpatient in 4-6 weeks for ongoing seizure management. She can call our office at [phone]. 4. While in inpatient she should be on seizure precautions and p.r.n. Intravenous lorazepam can be used for any breakthrough seizures. Please do not hesitate to call for any questions or changes in neurologic status with this patient.
--- NOTE | 2018-02-22 10:40 | SOAPPROG ---
SOAP Progress Note Assessment/Plan: Assessment: 1. Oligometastatic triple negative breast cancer 2. BRCA1 mutation 3. New brain metastasis Plan: - surgery over or Sunday - to be followed by [facility] to operative bed and R 5mm lesion. I discussed w/ Dr Ivis Malcolm, his radiation oncologist - continue olaparib. d/w Dr. Malcolm and Dr. Rushing 02/22/18 10:40 Subjective: feels back to normal more or less this morning. Objective: NAD exam unchanged. Vital Signs Temp Pulse Resp BP Pulse Ox 36.4 C 77 16 108/66 93 02/22/18 08:00 02/22/18 08:00 02/22/18 08:00 02/22/18 08:00 02/22/18 08:00 Laboratory Results 02/22/18 07:58 02/22/18 07:58 02/21/18 02/22/18 02/23/18 05:59 05:59 05:59 Intake Total 1500 Balance 1500 ICD10 Worksheet Patient Problems: Problems Problem Status Onset Breast cancer Acute Seizure Acute Dyspnea on effort Acute Fatigue Acute
--- NOTE | 2018-02-22 10:46 | ASMTCMCOM ---
CM Note CM Note Notes: CM reviewed pt's chart for d/c planning. Pt is a 38 y/o female with a hx of metastatic breast cancer who experienced a seizure during an exercise class. A head CT/brain MRI revealed a left posterosupierior frontal lobe hemmorrhagic cerebral metastesis with surrounding vasogenic edema and a small right sided lesion. Pt lives in [place], is and has 2 daughters. is [place] #[phone]. There are no PT/OT orders. CM will talk with pt and/or about utilizing the resource, [facility]. No other CM needs have been identified. CM to follow for changes. D/C Plan: TBD Date Signed: 02/22/2018 10:45 AM Electronically Signed By:Amber Huang
--- NOTE | 2018-02-22 12:33 | HOSPPROG ---
Hospitalist Progress Note Assessment/Plan: 38yo F with metastatic breast cancer presented after seizure found to have hemorrhagic brain mets. 1. Seizure: r/t mets - Neurology consulted - Continue keppra 750mg bid, steroids. Use IV ativan if has breakthrough sz - Seizure precautions, no driving 2. Hemorrhagic brain mets: Larger left frontal lesion and small right lesion. - Dexamethasone for vasogenic edema - Neurosurgery following, planning on surgical resection of larger lesion. Unclear if will happen over weekend or Sunday 3. Metastatic breast cancer: Followed by Ashlee Arredondo - Oncology consulted - Continue olaparib 4. Hypothyroid: Home meds Diet: regular VTE ppx: SCDs Code: full Dispo: Remain inpatient for surgical mgmt of brain met Subjective: Feeling back to baseline. No further seizures. Mild muscle aches. Objective: Vital Signs Temp Pulse Resp BP Pulse Ox 36.7 C 81 16 91/61 L 94 02/22/18 11:33 02/22/18 11:33 02/22/18 11:33 02/22/18 11:33 02/22/18 11:33 Laboratory Results 02/22/18 07:58 02/22/18 07:58 02/21/18 02/22/18 02/23/18 05:59 05:59 05:59 Intake Total 1500 Balance 1500 - Physical Exam Constitutional: no apparent distress, appears nourished, not in pain Eyes: PERRL, anicteric sclera, EOMI Ears, Nose, Mouth, Throat: moist mucous membranes, hearing normal, ears appear normal, no oral mucosal ulcers Cardiovascular: regular rate and rhythym, no murmur, rub, or gallop Respiratory: no respiratory distress, no rales or rhonchi, clear to auscultation Gastrointestinal: normoactive bowel sounds, soft, non-tender abdomen, no palpable masses Genitourinary: no bladder fullness, no bladder tenderness, no renal bruits Skin: no rashes or abrasions, no fluctuance, no induration Musculoskeletal: full muscle strength, no muscle tenderness, normal joint ROM Neurologic: AAOx3, sensation intact bilaterally Psychiatric: interacting appropriately, not anxious, not encephalopathic, thought process linear ICD10 Worksheet Patient Problems: Problems Problem Status Onset Breast cancer Acute Dyspnea on effort Acute Fatigue Acute Seizure Acute
--- NOTE | 2018-02-22 13:47 | ASMTCMCOM ---
CM Note CM Note Notes: Ivana Marisa contacted CM. Pt and her family have already been referred to [facility]. The family not wanting a palliative consult was reitterated. D/C Plan: Anticipate independent. Date Signed: 02/22/2018 01:46 PM Electronically Signed By:Amber Huang
[2018-02-23] MEDS: DEXAMETHASONE 4 MG TAB PO SCH ×5 (04:14→21:40)
[2018-02-23] MEDS: LIOTHYRONINE SODIUM 5 MCG TAB PO SCH (06:39)
[2018-02-23] MEDS: LEVOTHYROXINE 75 MCG TAB PO SCH ×2 (06:39→21:40)
[2018-02-23] MEDS: OLAPARIB 150 MG PO SCH ×2 (09:18→22:00)
[2018-02-23] MEDS: levETIRAcetam 500 MG TAB PO SCH ×2 (09:20→21:07)
--- NOTE | 2018-02-23 10:12 | NEUSURGPN ---
Assessment/Plan: Assessment: 38 yo female with breast cancer with seizure MRI Brain: Approximately 2 cm enhancing mass in the prefrontal region of the left frontal lobe with surrounding vasogenic edema and a smaller lesion in the right anterior superior frontal region Plan: - neuro stable - continue Decadron - Keppra - Will plan for resection of left frontal brain met, likely tomorrow or Sunday with Dr Garcia -Dr Garcia will be by to see patient as well and will determine OR time -Discussed patient with Dr Garcia Subjective: No new events Objective: AxO x4 PERRLA EOMI CN 2-12 grossly intact WALLIS x4 Neuro Check Frequency: per routine Urinary Catheter in Place: No - Physician Discussed Patient with Dr.: Garcia Patient Seen by Dr.: Garcia Neurosurgery Physical Exam - Vitals, I&O, Labs I and O 02/22/18 02/23/18 02/24/18 05:59 05:59 05:59 Intake Total 1500 2200 Balance 1500 2200 Weight 86.183 kg Intake: Oral (ml) 400 2200 IV Infused (ml) 1100 Other: Intake Quantity Yes Sufficient Number of Voids Toilet 1 3 Number of Stools Toilet 1 Vital Signs Temp Pulse Resp BP Pulse Ox 36.7 C 73 16 107/73 93 02/23/18 08:00 02/23/18 08:00 02/23/18 08:00 02/23/18 08:00 02/23/18 08:00 Laboratory Results 02/23/18 04:26 02/23/18 04:26 ICD10 Worksheet Patient Problems: Problems Problem Status Onset Breast cancer Acute Seizure Acute Dyspnea on effort Acute Fatigue Acute
[2018-02-23] MEDS ORDERED: LORazepam 2 MG/ML INJ IVP PRN (11:31)
--- NOTE | 2018-02-23 13:11 | SOAPPROG ---
SOAP Progress Note Assessment/Plan: Assessment: Haley is a very pleasant 38-year-old female with history of BRCA associated triple negative breast cancer admitted for symptomatic brain metastasis. 1. Triple negative breast cancer: Agree with continuing olaparib. He is followed by Dr. Arredondo. They will discuss next line of therapy options. 2. Brain mets: ZOHRA saw her today. Planning on surgery either today or tomorrow. On steroids and keppra. 3. Leukocytosis: Likely secondary to steroids. 02/23/18 13:16 Subjective: Haley is feeling well this morning. She has a nausea vomiting. She has no new neurological symptoms today. Overall she is in good spirits and is anticipating surgery soon. Review of systems: A 10 point review systems was obtained and was otherwise negative unless stated above. Objective: Vital Signs Temp Pulse Resp BP Pulse Ox 36.7 C 72 16 98/71 L 92 02/23/18 12:14 02/23/18 12:14 02/23/18 12:14 02/23/18 12:14 02/23/18 12:14 Laboratory Results 02/23/18 04:26 02/23/18 04:26 02/22/18 02/23/18 02/24/18 05:59 05:59 05:59 Intake Total 1500 2200 Balance 1500 2200 General: Pleasant-appearing female accompanied by multiple family members HEENT: Oropharynx is clear extraocular muscles are intact Cardiovascular: Regular rhythm Neuro: Moving all extremities equally sensation is intact Skin: No skin lesions GI: Soft nontender nondistended bowel sounds are present Extremities: No cyanosis clubbing or edema Lymph: No lymphadenopathy ICD10 Worksheet Patient Problems: Problems Problem Status Onset Breast cancer Acute Seizure Acute Dyspnea on effort Acute Fatigue Acute
[2018-02-23] MEDS ORDERED: GADOBUTROL 10 ML VIAL IVP ONE (13:43)
[2018-02-23] MEDS ORDERED: LORazepam 2 MG/ML INJ IV ONE (14:00)
--- NOTE | 2018-02-23 16:09 | HOSPPROG ---
Hospitalist Progress Note Assessment/Plan: 38yo F with metastatic breast cancer presented after seizure found to have hemorrhagic brain mets. 1. Seizure: r/t mets - Neurology consulted - Continue keppra 750mg bid, steroids. Use IV ativan if has breakthrough sz - Seizure precautions, no driving 2. Hemorrhagic brain mets: Larger left frontal lesion and small right lesion. - Repeat MRI today stable - Dexamethasone for vasogenic edema - Neurosurgery following, planning on surgical resection of larger lesion hopefully tomorrow (Sunday) 3. Metastatic breast cancer: Followed by Ashlee Arredondo - Oncology consulted - Continue olaparib 4. Hypothyroid: Home meds Diet: regular, NPO at midnight VTE ppx: SCDs Code: full Dispo: Remain inpatient for surgical mgmt of brain met Subjective: Feeling well. No new neurologic symptoms. Slept ok with steroids. Objective: Vital Signs Temp Pulse Resp BP Pulse Ox 36.7 C 79 16 101/75 96 02/23/18 14:55 02/23/18 14:55 02/23/18 14:55 02/23/18 14:55 02/23/18 14:55 Laboratory Results 02/23/18 04:26 02/23/18 04:26 02/22/18 02/23/18 02/24/18 05:59 05:59 05:59 Intake Total 1500 2200 Balance 1500 2200 - Physical Exam Constitutional: no apparent distress, appears nourished, not in pain Eyes: PERRL, anicteric sclera, EOMI Ears, Nose, Mouth, Throat: moist mucous membranes, hearing normal, ears appear normal, no oral mucosal ulcers Cardiovascular: regular rate and rhythym, no murmur, rub, or gallop Respiratory: no respiratory distress, no rales or rhonchi, clear to auscultation Gastrointestinal: normoactive bowel sounds, soft, non-tender abdomen, no palpable masses Genitourinary: no bladder fullness, no bladder tenderness, no renal bruits Skin: no rashes or abrasions, no fluctuance, no induration Musculoskeletal: full muscle strength, no muscle tenderness, normal joint ROM Neurologic: AAOx3 Psychiatric: interacting appropriately, not anxious, not encephalopathic, thought process linear ICD10 Worksheet Patient Problems: Problems Problem Status Onset Breast cancer Acute Seizure Acute Dyspnea on effort Acute Fatigue Acute
[2018-02-23] MEDS ORDERED: ceFAZolin 2 GM/DEXTROSE 100 ML IV ONE (17:24)
[2018-02-24] MEDS ORDERED: DEXAMETHASONE 4 MG/ML VIAL IVP ONE (04:00)
[2018-02-24 05:07] LABS: INR 1.07 (0.83-1.16); PROTIME(PATIENT) 14.1 SEC (12.0-15.0)
--- NOTE | 2018-02-24 07:18 | NEUSURGPN ---
Assessment/Plan: Assessment: 38 yo female with breast cancer with seizure MRI Brain: Approximately 2 cm enhancing mass in the prefrontal region of the left frontal lobe with surrounding vasogenic edema and a smaller lesion in the right anterior superior frontal region Plan: - neuro stable - continue Decadron - Keppra - Craniotomy for resection of left frontal brain met today at [address] Garcia. Risks and benefits discussed with patient. Consent signed on chart. -Discussed patient with Dr Garcia Subjective: no new events, doing well Objective: AxO x4 PERRLA EOMI CN 2-12 grossly intact WALLIS x4 5/5 BUE, BLE Neuro Check Frequency: per routine Urinary Catheter in Place: No - Physician Discussed Patient with Dr.: Garcia Neurosurgery Physical Exam - Vitals, I&O, Labs I and O 02/23/18 02/24/18 02/25/18 05:59 05:59 05:59 Intake Total 2200 900 Balance 2200 900 Intake: Oral (ml) 2200 900 Other: Intake Quantity Yes Sufficient Number of Voids Toilet 3 1 Number of Stools Toilet 1 Vital Signs Temp Pulse Resp BP Pulse Ox 36.4 C 60 14 93/58 L 96 02/24/18 05:55 02/24/18 05:55 02/24/18 05:55 02/24/18 05:55 02/24/18 05:55 Laboratory Results 02/24/18 03:44 02/24/18 03:44 ICD10 Worksheet Patient Problems: Problems Problem Status Onset Breast cancer Acute Seizure Acute Dyspnea on effort Acute Fatigue Acute
--- NOTE | 2018-02-24 07:18 | PDHPUP ---
History & Physical Update H&P update statement: This history and physical update is based on an assessment of the patient which was completed after admission or registration (within 24 hours), but prior to the surgery/procedure. H&P update: H&P reviewed & patient examined, no change in patient's condition since H&P completed
[2018-02-24] MEDS ORDERED: PROPOFOL 200 MG/20 ML VIAL ONE (07:32)
[2018-02-24] MEDS ORDERED: fentaNYL 250 MCG/5 ML INJ ONE (07:32)
--- NOTE | 2018-02-24 07:38 | PDANEPAE ---
ANE History of Present Illness hx of breast cancer, new oncet seisure and brain mass ANE Past Medical History - Cardiovascular History Hx Hypertension: No Hx Arrhythmias: No Hx Chest Pain: No Hx Coronary Artery / Peripheral Vascular Disease: No Hx CHF / Valvular Disease: No Hx Palpitations: No - Pulmonary History Hx COPD: No Hx Asthma/Reactive Airway Disease: No Hx Recent Upper Respiratory Infection: No Hx Oxygen in Use at Home: No Hx Sleep Apnea: No Sleep Apnea Screening Result - Last Documented: Negative - Neurologic History Hx Cerebrovascular Accident: No Hx Seizures: No Hx Dementia: No - Endocrine History Hx Diabetes: No Hypothyroid: Yes Hyperthyroid: No Obesity: no Endocrine History Comment: HYPOTHYROID - Renal History Hx Renal Disorders: No - Liver History Hx Hepatic Disorders: No - Neurological & Psychiatric Hx Hx Neurological and Psychiatric Disorders: No - Cancer History Hx Cancer: Yes Cancer History Comment: Breast CA - Congenital Disorder History Hx Congenital Disorders: No - GI History GERD: no Hx Gastrointestinal Disorders: No Gastrointestinal History Comment: DIARRHEA RELATED TO MEDS - Other Health History Other Health History: NONE - Chronic Pain History Chronic Pain: No - Surgical History Prior Surgeries: Maria Esther; wisdom teeth extraction ANE Review of Systems Review of systems is: negative Review of Systems: - Exercise capacity METS (RN): 4 METS ANE Patient History - Allergies Allergies/Adverse Reactions: codeine Allergy (Severe, Verified 02/21/18 11:06) Vomiting hydromorphone [From Dilaudid] Allergy (Verified 02/21/18 11:06) Hives - Home Medications Home medications: home medication list seen and reviewed Home Medications: Multivitamins [Multivitamin (*)] 1 each PO DAILY 10/17/11 [Last Taken 02/21/18] Levothyroxine [Synthroid 75 mcg (*)] 75 mcg PO DAILY06 01/19/17 [Last Taken ] Herbals/Supplements -Info Only 1 ea PO DAILY 11/08/17 [Last Taken 1 Week Ago ~] Olaparib [Lynparza] 150 mg PO DAILY 11/08/17 [Last Taken 02/20/18] [place]-3 Fatty Acids [Fish Oil 1000 mg (*)] 1,000 mg PO DAILY 11/08/17 [Last Taken 02/21/18] LORazepam [Ativan (*)] 0.5 mg PO HS PRN 02/21/18 [Last Taken Unknown] Liothyronine Sodium [Cytomel 5 mcg (*)] 5 mcg PO DAILY 02/21/18 [Last Taken ] Olaparib [Lynparza] 300 mg PO HS 02/21/18 [Last Taken Unknown] Zoledronic Acid [Zometa] 4 mg IV Q30D 02/21/18 [Last Taken 02/14/18] - NPO status NPO Status: no food or drink >8 hours NPO Since - Liquids (Date): 02/24/18 NPO Since - Liquids (Time): 00:01 NPO Since - Solids (Date): 02/23/18 NPO Since - Solids (Time): 00:01 - Anes Hx Anes Hx: no prior problems - Smoking Hx Smoking Status: Never smoked Marijuana use: No - Alcohol Use Alcohol Use: None - Family Anes Hx Family Anes Hx: none Family Hx Anesthesia Complications: NONE ANE Labs/Vital Signs - Labs Result Diagrams: 02/24/18 03:44 02/24/18 03:44 - Vital Signs Blood Pressure: 93/58 Heart Rate: 60 Respiratory Rate: 14 O2 Sat (%): 96 Height: 170.18 cm Weight: 86.183 kg ANE Physical Exam - Airway Neck exam: FROM Mallampati Score: Class 2 Mouth exam: normal dental/mouth exam - Pulmonary Pulmonary: no respiratory distress, clear to auscultation - Cardiovascular Cardiovascular: regular rate and rhythym, no murmur, rub, or gallop - ASA Status ASA Status: III ANE Anesthesia Plan Anesthesia Plan: general endotracheal anesthesia Lines/Monitors: arterial line
[2018-02-24] MEDS ORDERED: CEFAZOLIN 2 GM/DEXTROSE/100 ML BAG IV ONE (07:47)
[2018-02-24] MEDS ORDERED: MIDAZOLAM 2 MG/2 ML VIAL IVP ONE (07:49)
[2018-02-24] MEDS ORDERED: LIDOCAINE 2% 5 ML SDV ONE (07:55)
[2018-02-24] MEDS ORDERED: ROCURONIUM 50 MG/5 ML VIAL ONE ×2 (07:55→08:51)
[2018-02-24] MEDS ORDERED: SURGIFLO MATRIX KIT WITH THROMBIN 8 ML TP ONE (07:59)
[2018-02-24] MEDS ORDERED: MANNITOL 20% 100 GM/500 ML BAG IV ONE (08:00)
[2018-02-24] MEDS ORDERED: BACITRACIN ZINC 14.2 GM OINTTUBE TP ONE (08:00)
[2018-02-24] MEDS ORDERED: AVITENE POWDER 1 GM JAR TP ONE (08:00)
[2018-02-24] MEDS ORDERED: THROMBIN (BOVINE) 5,000 UNIT VIAL TP ONE (08:00)
[2018-02-24] MEDS ORDERED: BUPIVACAINE/EPI 0.25% 30 ML SDV ONE (08:01)
[2018-02-24] MEDS ORDERED: GENTAMICIN SULFATE 80 MG/2 ML VIAL ONE (08:01)
[2018-02-24] MEDS ORDERED: HYDROGEN PEROXIDE 473 ML BOTTLE TP ONE (08:01)
[2018-02-24] MEDS ORDERED: POVIDONE-IODINE 30 GM OINTTUBE TP ONE (08:01)
[2018-02-24] MEDS ORDERED: MIDAZOLAM 2 MG/2 ML VIAL ONE (08:04)
[2018-02-24] MEDS ORDERED: ePHEDrine SULFATE 25 MG/5 ML SYR ONE ×2 (09:07→09:59)
[2018-02-24] MEDS ORDERED: LACTULOSE 20 GM/30 ML UDCUP PO PRN (09:19)
[2018-02-24] MEDS ORDERED: MAGNESIUM HYDROXIDE 30 ML UDCUP PO PRN (09:19)
[2018-02-24] MEDS ORDERED: BISACODYL 10 MG SUPP PR PRN (09:19)
[2018-02-24] MEDS ORDERED: POLYETHYLENE GLYCOL 3350 17 GM PKT PO PRN (09:19)
[2018-02-24] MEDS ORDERED: METHOCARBAMOL 750 MG TAB PO PRN (09:19)
[2018-02-24] MEDS ORDERED: diphenhydrAMINE 25 MG CAP PO PRN (09:19)
[2018-02-24] MEDS ORDERED: niCARdipine/NACL 200 ML IV SCH (09:30)
[2018-02-24] MEDS ORDERED: ONDANSETRON 4 MG/2 ML VIAL ONE ×2 (09:57→11:26)
[2018-02-24] MEDS ORDERED: GLYCOPYRROLATE 0.2 MG/1 ML VIAL ONE ×2 (09:58)
[2018-02-24] MEDS ORDERED: PROMETHAZINE HCL 25 MG/ML INJ IVP PRN ×2 (10:05→21:14)
[2018-02-24] MEDS ORDERED: LABETALOL HCL 20 MG/4 ML INJ IVP PRN (10:05)
[2018-02-24] MEDS ORDERED: NALOXONE HCL 0.4 MG/ML INJ IVP PRN (10:05)
[2018-02-24] MEDS ORDERED: fentaNYL 100 MCG/2 ML INJ IVP PRN (10:05)
--- NOTE | 2018-02-24 10:05 | POSTANESTH ---
Post Anesthetic Evaluation Cardiovascular Status: Normal, Stable Respiratory Status: Normal, Stable Level of Consciousness/Mental Status: Can Participate in Eval, Moderately Sleepy Pain Control: Adequate, Prn Tx Ordered Nausea/Vomiting Control: Adequate, Prn Tx Ordered Complications Possibly Related to Anesthesia: None Noted
--- NOTE | 2018-02-24 10:50 | POSTOPPROG ---
Post Op Note Date of Operation: 02/24/18 Surgeon: Demario Garcia Sales Manager Prearranged Funerals: Evon Canales NP Anesthesia: GET(General Endotracheal) Pre-op Diagnosis: Brain tumor Procedure: Left frontal craniotomy for resection of tumor Inf/Abcess present in the surg proc area at time of surgery?: No Depth: Deep Incisional (Fascial) EBL: 50-100 Total fluids administered: see anesthesia Complications: none Date of Surgery: 02/24/18 Post Op Day: 0 Assessment/Plan: Assessment: 38 yo female with breast cancer with seizure, s/p left frontal craniotomy for tumor resection Plan: -admit to step down -Q2hr neuro checks - neuro stable - continue Decadron - Keppra - S/P Craniotomy for resection of left frontal brain met Please call neurosurgery with any questions/concerns Subjective: waking up in pacu Objective: waking up in pacu PERRLA No facial droop MAEx4 Dressing CDI Appropriate Neuro Check Frequency Ordered: Yes
[2018-02-24] MEDS ORDERED: MEPERIDINE 25 MG/0.5 ML AMP ONE (11:01)
[2018-02-24] MEDS: MEPERIDINE 25 MG/0.5 ML AMP IVP PRN ×2 (11:03→11:24)
[2018-02-24] MEDS: ONDANSETRON 4 MG/2 ML VIAL IVP PRN ×3 (11:27→20:10)
[2018-02-24] MEDS: LORazepam 0.5 MG TAB PO PRN ×2 (12:17→17:45)
[2018-02-24] MEDS: DEXAMETHASONE 4 MG TAB PO SCH ×2 (12:32→16:11)
[2018-02-24] MEDS: NS 1,000 ML IV SCH ×2 (12:39→22:08)
--- NOTE | 2018-02-24 12:39 | GOP ---
DATE OF OPERATION: 02/24/2018 SURGEON: Demario Garcia MD NEUROSURGEON: Demario Garcia MD UPPER CUTTER OUT: Evon Canales NP ANESTHESIA: General endotracheal. PREOPERATIVE DIAGNOSIS: Metastatic breast cancer. POSTOPERATIVE DIAGNOSIS: Metastatic breast cancer. PROCEDURE PERFORMED: 1. Left frontal craniotomy. 2. Microsurgical gross total resection of left frontal brain metastasis. 3. Use of stealth stereotactic neuronavigation for volumetric gross total resection of tumor. 4. Use of the operative microscope. FINDINGS: Successful tumor resection. SPECIMENS: Left frontal brain tumor. ESTIMATED BLOOD LOSS: 25 cc. INDICATIONS: The patient is a 38-year-old woman with metastatic breast cancer. She presented to the hospital a few days back with new diagnosis of a left frontal lesion with some surrounding vasogenic edema consistent with a metastasis. It is possible that she has a small area of hemosiderin in the right frontal region, which could be another metastasis, but there is no obvious contrast enhancement in this area. Given the relatively solitary nature of this disease, we recommended resection or pro ceeding electively today. DESCRIPTION OF PROCEDURE: After informed consent was obtained from the patient, the patient was brou ght to the operating room and was placed in supine position on the operating table. A formal time-ou t was performed, identifying the patient by name, medical record number, and date of . Preopera tive antibiotics were given. The endotracheal tube was placed and general endotracheal anesthesia wa s smoothly induced. The head was placed in the Fair pins and turned toward the right side. The Stealth was registered to the scalp and checked for accuracy using known surface landmarks. This was used to localize the shortest trajectory to the tumor and a linear incision was planned across this point. 10 cc of 0.25% Marcaine with epinephrine was infiltrated in the skin for hemostasis. The hea d was then prepped and draped in the normal sterile fashion. A skin incision was made using a 10 blade and subcutaneous tissues were dissected using monopolar nicholas ctrocautery. Gregory clips were placed for hemostasis. A self-retaining retractor was placed. The up per portion of the temporalis muscle was opened and the anatomy was again checked using the Stealth t o be sure that our craniotomy would encompass the entire tumor. A single lisa hole was created in th e inferior region. The craniotome was used to turn a 4 x 4 cm round craniotomy flap. A few dural ta ck-up sutures were placed. The dura was opened in a cruciate fashion and the operative microscope wa s brought on the field and remainder of the procedure was performed under high-power magnification. Again using Stealth, we localized the relevant anatomy and anterior and inferior to the tumor was brandon ct keenan. We began with careful microdissection of the sulcus, opening the arachnoid, and as we coursed more inferiorly, the discoloration of the posterior gyrus was visualized. A small corticectomy was then made and careful microdissection was used to dissect around the capsule of the tumor. We contin ued this capsular dissection, and we then debulked the tumor internally with an ultrasonic aspirator. We continued the capsular dissection completely and the tumor was then removed en bloc. The cavity was inspected to be sure there was no residual tumor and the brain surface appeared quite normal. T here was no further bleeding from the cavity and this was then covered with Surgicel. The wound was copiously irrigated using sterile saline. The dura was closed using interrupted 4-0 Nu kiran sutures. A piece of Gelfoam was placed over the dura and the craniotomy flap was plated back i n place using Synthes titanium plates and screws. The wound was copiously irrigated using bacitracin irrigation. The galea was closed using interrupted 2-0 Vicryl, and the skin was closed using a runn ing 4-0 Monocryl. The hair was washed. Bacitracin ointment was placed over the wound. Patient was then awakened in the operating room where. She was extubated and transferred to the PACU in stable c ondition. There were no operative complications. I was scrubbed and present for the entire procedure. All spo nge and needle counts were correct at the end of the case. FLUIDS/URINE OUTPUT: Per the anesthesia record. DRAINS: There were no drains. /[id number]/MODL
[2018-02-24] MEDS ORDERED: levETIRAcetam 250 MG TAB PO ONE (12:45)
--- NOTE | 2018-02-24 15:16 | HOSPPROG ---
Hospitalist Progress Note Assessment/Plan: 38yo F with metastatic breast cancer presented after seizure found to have hemorrhagic brain mets. 1. Seizure: r/t mets - Neurology consulted - Continue keppra 750mg bid, steroids. Use IV ativan if has breakthrough sz - Seizure precautions, no driving 2. Hemorrhagic brain mets: Larger left frontal lesion and small right lesion. - s/p left craniotomy and resection with Dr Garcia today - Dexamethasone for vasogenic edema 3. Metastatic breast cancer: Followed by Ashlee Arredondo - Oncology consulted - Continue olaparib 4. Hypothyroid: Home meds Diet: advance as tolerates VTE ppx: SCDs Code: full Dispo: Remain inpatient for surgical mgmt of brain met Subjective: I saw her in the ICU after surgery. She is still mostly sedated. C/ o headache and some nausea to . Objective: Vital Signs Temp Pulse Resp BP Pulse Ox 36.8 C 69 17 117/65 86 L 02/24/18 12:00 02/24/18 13:19 02/24/18 13:19 02/24/18 13:19 02/24/18 13:19 Laboratory Results 02/24/18 03:44 02/24/18 03:44 02/23/18 02/24/18 02/25/18 05:59 05:59 05:59 Intake Total 2200 900 800 Output Total 25 Balance 2200 900 775 PT 14.1 SEC (12.0-15.0) 02/24/18 03:44 INR 1.07 (0.83-1.16) 02/24/18 03:44 - Physical Exam Constitutional: no apparent distress, other (sedated) Eyes: anicteric sclera Ears, Nose, Mouth, Throat: moist mucous membranes Cardiovascular: regular rate and rhythym, no murmur, rub, or gallop Respiratory: no respiratory distress, no rales or rhonchi, clear to auscultation Gastrointestinal: normoactive bowel sounds, soft, non-tender abdomen, no palpable masses Genitourinary: no bladder fullness, no bladder tenderness, no renal bruits Skin: no rashes or abrasions, no fluctuance, no induration Musculoskeletal: full muscle strength, no muscle tenderness, normal joint ROM Neurologic: other (somnolent from sedation) Psychiatric: interacting appropriately ICD10 Worksheet Patient Problems: Problems Problem Status Onset Breast cancer Acute Seizure Acute Dyspnea on effort Acute Fatigue Acute
[2018-02-24] MEDS: ceFAZolin 2 GM/DEXTROSE 100 ML IV SCH ×2 (16:11→23:23)
--- NOTE | 2018-02-24 17:11 | GCON ---
CRITICAL CARE CONSULTATION DATE OF CONSULTATION: 02/24/2018 HISTORY OF PRESENT ILLNESS: This patient is a 38-year-old female with known metastatic breast cancer who was admitted on 02/21 with new onset generalized tonic-clonic seizure that occurred during exerc ise class. CT scan revealed a new 1.8 cm left frontal hemorrhagic metastasis within second smaller o ne. She was treated with Keppra, dexamethasone, and Neurosurgery consult who recommended a palliativ e resection, which was performed today. Surgery, itself, was unremarkable. She was brought to the i ntensive care unit for further monitoring. She has a significant headache, but otherwise no nausea a nd emesis, is recovering well, and was extubated easily. REVIEW OF SYSTEMS: Otherwise negative. PAST MEDICAL HISTORY: Includes breast cancer diagnosed in 2016, treated initially with radiation and chemotherapy, and she has been on chronic olaparib. She was found to have mets to her bone in 2017, and has been followed at the [facility]. Other past medical history, inc ludes attention deficit hyperactivity disorder, anxiety, hypothyroidism, and malignant melanoma. PAST SURGICAL HISTORY: Includes hysterectomy and bilateral mastectomies. SOCIAL HISTORY: She is a nonsmoker. No alcohol or IV drug use. FAMILY HISTORY: Noncontributory. MEDICATIONS: At this time, include Tylenol, Dulcolax, Ancef, Decadron, Benadryl, Lovenox, Pepcid, Ke ppra, Synthroid, Cytomel, Ativan p.r.n., milk of magnesia, Robaxin, morphine, nicardipine, Zofran, Mi raLAX, Senokot, normal saline. PHYSICAL EXAM: VITAL SIGNS: She is afebrile. Blood pressure is 99/67, heart rate of 62, normal sin us rhythm. Respirations 14, oxygen saturation 99% on 2 L. GENERAL: She was somnolent, but arousabl e and answered yes and no questions appropriately. SKIN: Dressings appeared to be clean. HEENT: P upils equally round and reactive to light. Nonicteric and noninjected. Mucous membranes moist witho ut erythema or exudate. NECK: Supple without adenopathy or jugular vein distention. LUNGS: Breath sounds were clear to auscultation bilaterally without wheezes, rubs, or rales. HEART: Regular rate and rhythm without obvious murmur. ABDOMEN: Soft, nontender, nondistended without hepatosplenomega ly. EXTREMITIES: No clubbing, cyanosis, or edema. NEUROLOGIC: Nonfocal, including cranial nerves and deep tendon reflexes. OBJECTIVE DATA: Includes white count 11.7, hematocrit 37, and platelets of 234. This was performed this morning. Basic metabolic panel was also normal this morning. ASSESSMENT/PLAN: 1. Recent seizure. She has been seizure-free since she has been taking Keppra. I imagine she will stay on this for quite some time. She is also getting dexamethasone that should reduce edema even th at which may result from her current palliative surgery. Will continue looking for recurrent seizure s at this time. 2. Hypoxemia, which is really quite mild, probably related to atelectasis. Just encourage her to us e incentive spirometry while she is in the intensive care unit. /[id number]/MODL
[2018-02-24] MEDS: OLAPARIB 150 MG PO SCH ×2 (20:08→20:17)
[2018-02-24] MEDS: LIOTHYRONINE SODIUM 5 MCG TAB PO SCH (20:08)
[2018-02-24] MEDS: levETIRAcetam 500 MG TAB PO SCH ×2 (20:08→20:39)
[2018-02-24] MEDS: SENNOSIDES/DOCUSATE SODIUM TAB PO SCH ×2 (20:40→21:25)
[2018-02-24] MEDS ORDERED: FAMOTIDINE 20 MG TAB PO SCH (21:00)
[2018-02-24] MEDS: FAMOTIDINE 20 MG/NACL 50 ML IV SCH (21:46)
[2018-02-24] MEDS: levETIRAcetam 750 MG in NS 100 ML IV SCH (21:48)
[2018-02-24] MEDS: DEXAMETHASONE 4 MG/ML VIAL IVP SCH (21:52)
[2018-02-24] MEDS: DIAZEPAM 5 MG/ML 1 ML SYR IVP PRN (22:01)
[2018-02-25] MEDS: DEXAMETHASONE 4 MG/ML VIAL IVP SCH ×4 (04:01→21:57)
[2018-02-25] MEDS: LEVOTHYROXINE 75 MCG TAB PO SCH (05:32)
[2018-02-25 05:47] LABS: PLATELET COUNT 174 10^3/uL (150-400)
[2018-02-25] MEDS: NS 1,000 ML IV SCH (07:32)
[2018-02-25] MEDS ORDERED: GADOBUTROL 10 ML VIAL IVP ONE (07:34)
[2018-02-25] MEDS: DIAZEPAM 5 MG/ML 1 ML SYR IVP PRN ×2 (07:35→22:16)
[2018-02-25] MEDS: FAMOTIDINE 20 MG/NACL 50 ML IV SCH ×2 (08:39→20:50)
[2018-02-25] MEDS: levETIRAcetam 750 MG in NS 100 ML IV SCH ×2 (08:39→20:50)
--- NOTE | 2018-02-25 09:14 | HOSPPROG ---
Hospitalist Progress Note Assessment/Plan: 38yo F with metastatic breast cancer presented after seizure found to have hemorrhagic brain mets, now s/p craniotomy with resection of left frontal tumor 1. Seizure: 2/2 brain mets - Continue keppra 750mg bid, IV ativan if has breakthrough sz - Seizure precautions, no driving x90 days 2. Hemorrhagic brain mets: Larger left frontal lesion and small right lesion, s/ p resection of left frontal lesion, POD #1 - cont Dexamethasone - post-op care per neurosurg 3. Metastatic breast cancer: brain, bone mets rt iliac. Followed by Ashlee Arredondo , s/p b/l mastectomy, XRT/chemo, now on targeted therapy - Oncology following - Continue olaparib 4. Hypothyroid: cont home meds Diet: clears, advance per surg recs VTE ppx: SCDs, defer pharm for now with ICH and brain mets Code: full Dispo: cont inpt, ICU Subjective: Pt up in chair. Has slight headache, better without movement. No N /V. No fevers/chills. Tolerating clears. Objective: Vital Signs Temp Pulse Resp BP Pulse Ox 36.5 C 56 L 15 91/57 L 96 02/25/18 04:00 02/25/18 04:00 02/25/18 04:00 02/25/18 04:00 02/25/18 04:00 Laboratory Results 02/25/18 05:24 02/25/18 05:24 02/24/18 02/25/18 02/26/18 05:59 05:59 05:59 Intake Total 900 3442 Output Total 1255 Balance 900 2187 PT 14.1 SEC (12.0-15.0) 02/24/18 03:44 INR 1.07 (0.83-1.16) 02/24/18 03:44 - Physical Exam Constitutional: no apparent distress Eyes: PERRL Ears, Nose, Mouth, Throat: moist mucous membranes Cardiovascular: regular rate and rhythym Respiratory: no respiratory distress, clear to auscultation Gastrointestinal: normoactive bowel sounds, soft, non-tender abdomen Skin: warm Musculoskeletal: other (decreased strength RUE, RLE) Neurologic: AAOx3 Psychiatric: interacting appropriately, flat affect ICD10 Worksheet Patient Problems: Problems Problem Status Onset Breast cancer Acute Seizure Acute Dyspnea on effort Acute Fatigue Acute
--- NOTE | 2018-02-25 09:21 | NEUSURGPN ---
Date of Surgery: 02/24/18 Post Op Day: 1 Assessment/Plan: Assessment: 38 yo female with breast cancer with seizure, s/p left frontal craniotomy for tumor resection POD#1 Plan: -Q2hr neuro checks - neuro stable - continue Decadron - Keppra -Patient had N/V last evening, will change Keppra and Decadron to IV if needed until nausea subsides - Post op MRI brain pending Discussed patient with Dr Garcia, he will be by later today to see patient as well Please call neurosurgery with any questions/concerns Subjective: Having Nausea issues, otherwise ok Objective: AxO x4 PERRLA EOMI CN 2-12 grossly intact MAEx4 Mild right promotion writer weakness 5-/5 Dressing CDI Neuro Check Frequency: per routine Urinary Catheter in Place: No - Physician Discussed Patient with : Jose Neurosurgery Physical Exam - Vitals, I&O, Labs I and O 02/24/18 02/25/18 02/26/18 05:59 05:59 05:59 Intake Total 900 3442 Output Total 1255 Balance 900 2187 Weight 86.183 kg Intake: Oral (ml) 900 970 IV Intake (ml) 900 IV Infused (ml) 1572 Ns 1,000 ml @ 100 mls/hr 1572 IV CONT ANABELA Rx#: [id number] Output: Urine (ml) 1200 Bedside Commode 1200 Estimated Blood Loss (ml) 25 Emesis (ml) 30 Other: Number of Voids Toilet 1 1 Vital Signs Temp Pulse Resp BP Pulse Ox 36.5 C 56 L 15 91/57 L 96 02/25/18 04:00 02/25/18 04:00 02/25/18 04:00 02/25/18 04:00 02/25/18 04:00 Laboratory Results 02/25/18 05:24 02/25/18 05:24 ICD10 Worksheet Patient Problems: Problems Problem Status Onset Breast cancer Acute Seizure Acute Dyspnea on effort Acute Fatigue Acute
--- NOTE | 2018-02-25 09:30 | PDINTPN ---
Letterer Progress Note Assessment/Plan: Assessment/plan: * Hemorrhagic brain metastasis * Status post craniotomy * History of breast cancer-status post chemo and radiation * New onset seizure secondary to above -continue Keppra * Hypoxemia-likely atelectasis * Pain-well controlled * VT prophylaxis-Lovenox on hold * Stress ulcer prophylaxis * PT/OT Subjective: Resting comfortably. Pain reasonably well controlled. Objective: Vital Signs Temp Pulse Resp BP Pulse Ox 36.5 C 56 L 15 91/57 L 96 02/25/18 04:00 02/25/18 04:00 02/25/18 04:00 02/25/18 04:00 02/25/18 04:00 Laboratory Results 02/25/18 05:24 02/25/18 05:24 02/24/18 02/25/18 02/26/18 05:59 05:59 05:59 Intake Total 900 3442 Output Total 1255 Balance 900 2187 PT 14.1 SEC (12.0-15.0) 02/24/18 03:44 INR 1.07 (0.83-1.16) 02/24/18 03:44 - Time Spent With Patient Time Spent With Patient: 35 min of time spent with patient, over 1/2 involved with coordination of care or counseling. Case discussed with nursing Physical Exam - Physical Exam General Appearance: alert, mild distress EENT: PERRL/EOMI Neck: non-tender Respiratory: crackles (Few basilar), No respiratory distress, No wheezing Cardiac/Chest: normal peripheral pulses, regular rate, rhythm Peripheral Pulses: 2+: carotid (R), carotid (L), femoral (R), femoral (L), dorsalis-pedis (R), dorsalis-pedis (L) Abdomen: normal bowel sounds, non-tender, soft Pelvic Exam: deferred Rectal: deferred Skin: normal color, warm/dry Extremities: normal range of motion, non-tender, normal inspection, normal capillary refill Neuro/Psych: alert, oriented x 3 ICD10 Worksheet Patient Problems: Problems Problem Status Onset Breast cancer Acute Seizure Acute Dyspnea on effort Acute Fatigue Acute
--- NOTE | 2018-02-25 11:41 | SOAPPROG ---
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 1. Triple negative breast cancer: She is followed by Dr. Arredondo. They will discuss next line of therapy options. We will likely send tumor tissue for next generation sequencing. 2. Brain mets: S/p surgical resection. Will need postoperative radiation. Still having a difficult time postoperatively. 02/25/18 11:40 Subjective: [age]y and difficult time postoperatively. She had significant nausea and vomiting. She also has significant headaches. Objective: Vital Signs Temp Pulse Resp BP Pulse Ox 36.5 C 56 L 15 91/57 L 96 02/25/18 04:00 02/25/18 04:00 02/25/18 04:00 02/25/18 04:00 02/25/18 04:00 Laboratory Results 02/25/18 05:24 02/25/18 05:24 02/24/18 02/25/18 02/26/18 05:59 05:59 05:59 Intake Total 900 3442 Output Total 1255 Balance 900 2187 PT 14.1 SEC (12.0-15.0) 02/24/18 03:44 INR 1.07 (0.83-1.16) 02/24/18 03:44 General: Occasionally is in conversation, mother is at bedside HEENT: Craniotomy incision is bandaged ICD10 Worksheet Patient Problems: Problems Problem Status Onset Breast cancer Acute Seizure Acute Dyspnea on effort Acute Fatigue Acute
[2018-02-25] MEDS: LIOTHYRONINE SODIUM 5 MCG TAB PO SCH (11:50)
[2018-02-25] MEDS: OLAPARIB 150 MG PO SCH ×2 (11:51→20:58)
[2018-02-25] MEDS: SENNOSIDES/DOCUSATE SODIUM TAB PO SCH ×2 (11:51→20:52)
[2018-02-25] MEDS: IBUPROFEN 600 MG TAB PO PRN ×2 (16:21→21:56)
--- NOTE | 2018-02-25 16:41 | ASMTCMCOM ---
CM Note CM Note Notes: Patient had a L frontal Crani resection of tumor today. 's mother in ICU Rounds. PT-Home with supervision, OT-possible HC, ST- out-pt rehab. CM to follow for any changes in needs. Date Signed: 02/25/2018 04:41 PM Electronically Signed By:Nidia Danielson LCSW
[2018-02-25] MEDS: levETIRAcetam 500 MG TAB PO SCH (18:30)
[2018-02-26] MEDS: IBUPROFEN 600 MG TAB PO PRN ×2 (04:02→11:03)
[2018-02-26] MEDS: DEXAMETHASONE 4 MG/ML VIAL IVP SCH ×2 (04:02→11:04)
[2018-02-26] MEDS: LEVOTHYROXINE 75 MCG TAB PO SCH (05:04)
[2018-02-26] MEDS: LORazepam 0.5 MG TAB PO PRN (05:04)
[2018-02-26 08:15] VITALS: BP 108/78
--- NOTE | 2018-02-26 08:33 | HOSPPROG ---
Hospitalist Progress Note Assessment/Plan: 38yo F with metastatic breast cancer presented after seizure found to have hemorrhagic brain mets, now s/p craniotomy with resection of left frontal tumor. First encounter, chart reviewed. *Seizure: 2/2 brain mets - Continue keppra 750mg bid, IV ativan if has breakthrough sz - Seizure precautions, no driving x90 days * Hemorrhagic brain mets: Larger left frontal lesion and small right lesion, s/ p resection of left frontal lesion, POD #2 - cont Dexamethasone - post-op care per neurosurg -will need f/u radiation * Metastatic breast cancer: brain, bone mets rt iliac. Followed by Ashlee Arredondo , s/p b/l mastectomy, XRT/chemo, now on targeted therapy - Oncology following - Continue olaparib * Hypothyroid: cont home meds *plan: Haley would like to go home w her and children, reviewed her care w Michaela Canales NP w neurosurgery, will aim to dc after she showers, will update oncology. Subjective: Haley has a headache, has been eating well, anxious to go home. Objective: Vital Signs Temp Pulse Resp BP Pulse Ox 37.2 C 76 16 108/78 92 02/26/18 08:00 02/26/18 08:00 02/26/18 08:00 02/26/18 08:00 02/26/18 08:00 Laboratory Results 02/26/18 05:08 02/25/18 05:24 02/25/18 02/26/18 02/27/18 05:59 05:59 05:59 Intake Total 3442 2700 Output Total 1255 Balance 2187 2700 PT 14.1 SEC (12.0-15.0) 02/24/18 03:44 INR 1.07 (0.83-1.16) 02/24/18 03:44 - Physical Exam Constitutional: no apparent distress, appears nourished Eyes: PERRL Ears, Nose, Mouth, Throat: hearing normal Cardiovascular: regular rate and rhythym Respiratory: no respiratory distress Gastrointestinal: normoactive bowel sounds Skin: warm Neurologic: AAOx3 Psychiatric: interacting appropriately ICD10 Worksheet Patient Problems: Problems Problem Status Onset Breast cancer Acute Seizure Acute Dyspnea on effort Acute Fatigue Acute
[2018-02-26] MEDS: levETIRAcetam 750 MG in NS 100 ML IV SCH (08:58)
[2018-02-26] MEDS: FAMOTIDINE 20 MG/NACL 50 ML IV SCH (09:00)
[2018-02-26] MEDS: SENNOSIDES/DOCUSATE SODIUM TAB PO SCH (09:02)
--- NOTE | 2018-02-26 09:03 | NEUSURGPN ---
Date of Surgery: 02/24/18 Post Op Day: 2 Assessment/Plan: Assessment: 38 yo female with breast cancer with seizure, s/p left frontal craniotomy for tumor resection POD#2 Plan: - neuro stable - will discharge with Decadron taper - Keppra-continue at discharge -Remove telfa/stapes from incision site -Ok to shower, wash hair with baby shampoo - Post op MRI brain showed good resection without evidence of residual enhancement Discussed patient with Dr Garcia -Ok to pr home from neurosurgery standpoint Please call neurosurgery with any questions/concerns Subjective: doing well, no complaints Objective: AxO x4 PERRLA CN 2-12 grossly intact MAEx4 5/5 BUE, BLE Telfa/incision CDI Neuro Check Frequency: per routine Urinary Catheter in Place: No - Physician Discussed Patient with : Jose Neurosurgery Physical Exam - Vitals, I&O, Labs I and O 02/25/1818 02/27/18 05:59 05:59 05:59 Intake Total 3442 2700 Output Total 1255 Balance 2187 2700 Weight 86.183 kg Intake: Oral (ml) 970 1300 IV Intake (ml) 900 IV Infused (ml) 1572 1400 Ns 1,000 ml @ 100 mls/hr 1572 1400 IV CONT ANABELA Rx#: [id number] Output: Urine (ml) 1200 Bedside Commode 1200 Estimated Blood Loss (ml) 25 Emesis (ml) 30 Other: Number of Voids Bedside Commode 3 Toilet 1 1 Number of Stools Bedside Commode 0 Toilet 0 Vital Signs Temp Pulse Resp BP Pulse Ox 37.2 C 76 16 108/78 92 02/26/18 08:00 02/26/18 08:00 02/26/18 08:00 02/26/18 08:00 02/26/18 08:00 Laboratory Results 02/26/18 05:08 02/25/18 05:24 ICD10 Worksheet Patient Problems: Problems Problem Status Onset Breast cancer Acute Seizure Acute Dyspnea on effort Acute Fatigue Acute
[2018-02-26] MEDS: OLAPARIB 150 MG PO SCH (09:13)
--- NOTE | 2018-02-26 10:42 | ASMTLACE ---
LACE Length of stay for Answers: 4-6 days current admission Acuity / Level of Answers: Yes Care: Did the patient have an inpatient admission? Comorbidities - select Answers: Any tumor (including all that apply lymphoma or leukemia) Other Notes: Hypothyroid # of Emergency department Answers: 1-2 visits in the last 6 months Social determinants Answers: Mental health diagnosis (anxiety, depression, pers onality disorders, etc.) Score: 14 Date Signed: 02/26/2018 10:42 AM Electronically Signed By:LIZY Santoyo
[2018-02-26] MEDS: LIOTHYRONINE SODIUM 5 MCG TAB PO SCH (11:03)
--- NOTE | 2018-02-26 11:51 | PDIAF ---
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 - Orders Services needed: Home Care, Physical Therapy, Occupational Therapy, Speech Language Pathologist Home Care Face to Face: I certify that this patient was under my care and that I had the required [id number] encounter meeting the encounter requirements on the discharge day. My findings support the fact that the patient is homebound as defined in Home Care Face to Face Continued: CMS Chapter 7 Medicare Benefits Manual 30.1.1 , The condition of the patient is such that there exists a normal inability to leave home and consequently, leaving home would require a considerable and taxing effort. Isolation Type: Chemotherapy Isolation Diet Recommendation: no restrictions on diet Diet Texture: Regular Texture Diet Additional Instructions: Ok to shower and wash hair daily with baby shampoo Avoid high exertion activities for 6-8 weeks Continue Keppra 750 mg twice daily indefinitely. Can cause possible mood changes/irritability type side effects. [address] of [address] restrictions and seizure precautions. (no bathing without someone being at the house, no swimming, etc) follow up with Neurology as an outpatient in 4-6 weeks for ongoing seizure management. call office at [phone]. script for Keppra and Decadron (script written out by neurosurgery) was sent to [facility] - Follow Up Care Current Providers and Referrals: Tigre Cruz MD [Medical Doctor] - Demario Garcia MD [Medical Doctor] - follow up in 2 weeks Patient,NotPresent [Unknown] - As per Instructions Ashlee Arredondo MD [Medical Doctor] -
--- NOTE | 2018-02-26 12:03 | PDIAF ---
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 - Orders Services needed: Home Care, Registered Nurse, Physical Therapy, Occupational Therapy, Speech Language Pathologist Home Care Face to Face: I certify that this patient was under my care and that I had the required [id number] encounter meeting the encounter requirements on the discharge day. My findings support the fact that the patient is homebound as defined in Home Care Face to Face Continued: CMS Chapter 7 Medicare Benefits Manual 30.1.1 , The condition of the patient is such that there exists a normal inability to leave home and consequently, leaving home would require a considerable and taxing effort. Isolation Type: Chemotherapy Isolation Diet Recommendation: no restrictions on diet Diet Texture: Regular Texture Diet Additional Instructions: Ok to shower and wash hair daily with baby shampoo Avoid high exertion activities for 6-8 weeks Continue Keppra 750 mg twice daily indefinitely. Can cause possible mood changes/irritability type side effects. [address] of [address] restrictions and seizure precautions. (no bathing without someone being at the house, no swimming, etc) follow up with Neurology as an outpatient in 4-6 weeks for ongoing seizure management. call office at [phone]. script for Keppra and Decadron (script written out by neurosurgery) was sent to [facility] i just a script for Zofran to [facility] for nausea if you need this - Follow Up Care Current Providers and Referrals: Tigre Cruz MD [Medical Doctor] - Demario Garcia MD [Medical Doctor] - follow up in 2 weeks Ashlee Arredondo MD [Medical Doctor] - Patient,NotPresent [Unknown] - As per Instructions
--- NOTE | 2018-02-26 12:13 | ASMTDCNOTE ---
Case Management Discharge Discharge Order Complete? Answers: Yes Patient to Obtain Answers: via Family Medications Transportation Arranged Answers: Family/Friends Case Management Transport Answers: Yes Form Complete Faxed Final Orders Answers: Yes Agency/Facility Transfer Answers: Yes Report Printed & Faxed to Receiving Agency Family Notified Answers: Yes Discharge Comments Notes: CM discussed discharge plan with pt and pt's mother. Pt would like to be linked with [facility] at discharge. Pt's mother is supportive and reports pt has family involved in her care at this time. Family to transport. no other CM needs identified at this time. Plan: Home with [facility] Homecare. Date Signed: 02/26/2018 12:12 PM Electronically Signed By:LIZY Santoyo
--- NOTE | 2018-02-26 14:07 | GDS ---
DISCHARGE DIAGNOSES: 1. 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 2. Hemorrhagic brain metastasis. 3. Metastatic breast cancer with metastasis to the bones and brain. 4. Hypothyroidism. CONSULTATIONS: 1. Dr. Musa Rushing. 2. Dr. Tigre Cruz. 3. Dr. Jaleel Hernandes. HISTORY: Briefly, patient is a 38-year-old woman with metastatic triple negative breast cancer. She was in her usual state of health while doing an exercise class and developed some repetitive motions in her hand. She then lost consciousness and appeared to have a seizure. She was brought to the ER for evaluation. A CT of her head showed an area of white matter hypodensity in the left side of the brain measuring 4 cm. Subsequently, a brain MRI revealed an 18 mm tumor with surrounding vasogenic edema. There was also a small right-sided lesion measuring 5 mm. She was started on Keppra. She wa s seen and evaluated by Neurosurgery. She subsequently had a left frontal craniotomy with resection of the tumor. She was started on IV Decadron. She will be transitioned to oral Decadron. Today, jovana quinones is anxious to get back home to be with her and children. This will be done. In addition, she will get home care to give her support as far as physical therapy, speech therapy, and occupation al therapy. She will follow up with Neurosurgery and with Oncology in the outpatient setting. HOSPITAL COURSE: 1. 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 She will be on Keppra 750 mg b.i.d. indefinitely. She is also on seizure precautions. She is not to drive for the next 90 days and follow up with Neurology. 2. Hemorrhagic brain metastasis. She has a larger left frontal lesion and a small right lesion, sta tus post resection of the left frontal lesion. This is postop day #2. She will continue Decadron. She will need outpatient radiation. 3. Metastatic breast cancer with metastasis to her brain and metastasis, in addition, to her right i liac. She is followed by Ashlee Arredondo. She will follow up with her in the outpatient setting. She h as a history of bilateral mastectomy, XRT and chemotherapy. Now she is on targeted therapy. 4. Hypothyroidism, on Synthroid. DISCHARGE CONDITION: Stable. Blood pressure is 108/78. Heart rate is 76. Respiratory rate is 16. O2 sats on room air are 92%. Temperature is 37.2 Celsius. DISCHARGE MEDICATIONS: Please see the EMR. DISCHARGE INSTRUCTIONS: 1. It is okay for her to shower. 2. Avoid high exertion activities for the next 6-8 weeks. 3. Continue Keppra indefinitely, to note that this can cause possible mood changes and irritability. 4. Ninety days of driving restriction and seizure precautions. 5. Follow up with Neurology in 4-6 weeks. Her scripts for Keppra and Decadron have been sent to the pharmacy here to be filled. 6. If she develops fever, chills, chest pain, any further seizures, return to the ER. Greater than 30 minutes discharging and coordinating her care. Copy requested to: Dr. Garcia /[id number]/MODL
[2018-02-27] MEDS ORDERED: ENOXAPARIN 40 MG/0.4 ML SYR SC SCH (09:00)
--- NOTE | 2018-02-28 08:46 | ASDISCHSUM ---
Discharge Information Plan Status:Home with Home Health Medically Cleared to Leave:02/25/2018 Discharge Date:02/26/2018 03:23 PM D/C Disposition:Home Health Service [facility] D/C Disposition:Home, Routine, Self-Care Projected Discharge Date:02/26/2018 12:00 AM Transportation at D/C:Family Discharge Delay Reason: Follow-Up Date:02/26/2018 12:00 AM Discharge Slot: Final Diagnosis: Placement Information Referral Type:*Home Health Care Services Referral ID:[id number] Provider Name:[facility] Address 1:[address] [facility] [facility] [address] Address 2: City:[place] Selection Factors: State:[place] Patient Contact Information Contact Name:SYDNEE Relationship: Address:[address] Work Phone: [facility] Alternate Phone: [facility]/Zip Code:[place] [address] Email: Financial Information Financial Class:HMO and PPO Plans Primary Plan Desc:[facility] MAGALIEBETH Primary Plan Number:[id number] Secondary Plan Desc:GARETT Secondary Plan Number:[id number] Assessment Information LACE LACE Length of stay for Answers: 4-6 days current admission Acuity / Level of Answers: Yes Care: Did the patient have an inpatient admission? Comorbidities - select Answers: Any tumor (including all that apply lymphoma or leukemia) Other Notes: Hypothyroid # of Emergency department Answers: 1-2 visits in the last 6 months Social determinants Answers: Mental health diagnosis (anxiety, depression, pers onality disorders, etc.) Score: 14 Date Signed: 02/26/2018 10:42 AM Electronically Signed By:LIZY Santoyo [facility] Progress Note CM Note CM Note Notes: CM reviewed pt's chart for d/c planning. Pt is a 38 y/o female with a hx of metastatic breast cancer who experienced a seizure during an exercise class. A head CT/brain MRI revealed a left posterosupierior frontal lobe hemmorrhagic cerebral metastesis with surrounding vasogenic edema and a small right sided lesion. Pt lives in [place], is and has 2 daughters. is [place] #[phone]. There are no PT/OT orders. CM will talk with pt and/or about utilizing the resource, [facility]. No other CM needs have been identified. CM to follow for changes. D/C Plan: TBD Date Signed: 02/22/2018 10:45 AM Electronically Signed By:Amber Huang [facility] CM Progress Note CM Note CM Note Notes: Ivana Cunningham contacted CM. Pt and her family have already been referred to [facility]. The family not wanting a palliative consult was reitterated. D/C Plan: Anticipate independent. Date Signed: 02/22/2018 01:46 PM Electronically Signed By:Amber Huang [facility] CM Progress Note CM Note CM Note Notes: Patient had a L frontal Crani resection of tumor today. 's mother in ICU Rounds. PT-Home with supervision, OT-possible HC, ST- out-pt rehab. CM to follow for any changes in needs. Date Signed: 02/25/2018 04:41 PM Electronically Signed By:Nidia Danielson LCSW Case Management Discharge Plan Note Case Management Discharge Discharge Order Complete? Answers: Yes Patient to Obtain Answers: via Family Medications Transportation Arranged Answers: Family/Friends Case Management Transport Answers: Yes Form Complete Faxed Final Orders Answers: Yes Agency/Facility Transfer Answers: Yes Report Printed & Faxed to Receiving Agency Family Notified Answers: Yes Discharge Comments Notes: CM discussed discharge plan with pt and pt's mother. Pt would like to be linked with [facility] at discharge. Pt's mother is supportive and reports pt has family involved in her care at this time. Family to transport. no other CM needs identified at this time. Plan: Home with [facility] Homecare. Date Signed: 02/26/2018 12:12 PM Electronically Signed By:LIZY Santoyo Intervention Information
== END 2018-02-26 15:23 | disposition home health service (06) | DRG 25 ==
LOC: EDUNIT# → F1N 14:59 → F2N 02-24 08:35 → F3N 02-25 17:58
PROVIDERS: ADMIT Student in an Organized Health Care Education/Training Program; ATTEND Student in an Organized Health Care Education/Training Program
DX: C79.31 Secondary malignant neoplasm of brain (principal); G93.6 Cerebral edema; C79.51 Secondary malignant neoplasm of bone; G40.89 Other seizures; C50.912 Malignant neoplasm of unspecified site of left female breast; E86.9 Volume depletion, unspecified; E03.9 Hypothyroidism, unspecified; Z90.13 Acquired absence of bilateral breasts and nipples; Z90.710 Acquired absence of both cervix and uterus; Z80.3 Family history of malignant neoplasm of breast
CPT/HCPCS: 92523-GN; 96374; 97116-GP; 97162-GP; 97166-GO; 97530-GO; 97530-GP; 97535-GO; A9585; C1713; J0690; J1100; J1580; J1953; J2060; J2175; J2250; J2270; J2405; J2550; J2704; J3010; J3360

== ENCOUNTER → 2018-05-22 | Outpatient (CLI) | payer OTHER | LOC: FIMAGING 09:52 | PROVIDERS: ATTEND Internal Medicine Hematology & Oncology | DX: Z08 Encounter for follow-up examination after completed treatment for malignant neoplasm (principal); C50.412 Malignant neoplasm of upper-outer quadrant of left female breast | CPT/HCPCS: A9585 ==

== ENCOUNTER → 2018-07-12 | Outpatient (CLI) | payer OTHER | LOC: FIMAGING 12:06 | PROVIDERS: ATTEND Nurse Practitioner | DX: G93.9 Disorder of brain, unspecified (principal); R42 Dizziness and giddiness; R53.83 Other fatigue; C50.412 Malignant neoplasm of upper-outer quadrant of left female breast | CPT/HCPCS: A9585 ==

== ENCOUNTER 2018-08-09 14:26 | Observation (INO) | payer OTHER ==
[2018-08-09] MEDS ORDERED: PROMETHAZINE HCL 25 MG/ML INJ IVP PRN (14:51)
[2018-08-09] MEDS ORDERED: ONDANSETRON 4 MG/2 ML VIAL IVP PRN ×2 (14:51→17:52)
[2018-08-09] MEDS ORDERED: ACETAMINOPHEN 325 MG TAB PO PRN (14:51)
[2018-08-09] MEDS ORDERED: LORazepam 2 MG/ML INJ IVP PRN (14:51)
[2018-08-09] MEDS ORDERED: oxyCODONE IR 5 MG TAB PO PRN (14:53)
--- NOTE | 2018-08-09 15:01 | PDGENHP ---
History and Physical - Chief Complaint nausea, vomiting, dizziness - History of Present Illness 38yo F with metastatic triple negative breast cancer who is directly admitted from oncology clinic due to nausea, emesis, dizziness, and generalized weakness. She received her first cycle of cisplatin on Sunday (2 days ago) and also was just started on pembrolizumab (her second dose was last Sunday, 1 week ago). She felt nauseous yesterday and took a granisetron which helped some. She hasn't had any appetite and very minimal PO intake over the last 2 days. She again had nausea and a bout of non-bloody emesis this morning. She felt very dizzy upon sitting or standing but feels ok when she lies down. Denies vertigo. She does feel generally weak but has not had any falls at home. Went to oncology clinic today for some labs and follow up. Dr Arredondo, her primary oncologist, was concerned with the symptoms she was having as they seemed somewhat out of proportion to the therapies she had received. Dr Arredondo is also concerned about her steadily declining platelet count over the last month or so. The patient denies any bleeding. Currently, Haley denies any pain , headaches, new vision changes, or focal weakness. She continues to have some mild nausea. Denies any seizures since last February. Of note, the patient was recently started on new anti-cancer therapies because a CT scan showed significant progression of her disease with new/worsening mets in her liver, lungs, spleen, and adrenal glands. She does have known brain mets. A left frontal lesion was resected 02/2018. She has had stereotactic radiation to an additional brain lesion on the left side approximately one month ago. History Information - Allergies/Home Medication List Allergies/Adverse Reactions: codeine Allergy (Severe, Verified 02/21/18 11:06) Vomiting hydromorphone Allergy (Unknown, Verified 08/09/18 16:34) Hives Home Medications: Levothyroxine [Synthroid 75 mcg (*)] 75 mcg PO DAILY06 01/19/17 [Last Taken ] Liothyronine Sodium [Cytomel 5 mcg (*)] 5 mcg PO DAILY06 02/21/18 [Last Taken ] Zoledronic Acid [Zometa] 4 mg IV Q30D 02/21/18 [Last Taken 06/10/18] Chemo Fyi 1 ea IV Q21D 08/09/18 [Last Taken 08/07/18] Granisetron HCl 1 mg PO DAILY 08/09/18 [Last Taken 08/09/18] LORazepam [Ativan (*)] 1 mg PO HS PRN 08/09/18 [Last Taken Unknown] OLANZapine [ZyPREXA 2.5 mg (*)] 2.5 mg PO HS PRN 08/09/18 [Last Taken Unknown] I have personally reviewed and updated: family history, medical history, social history, surgical history - Past Medical History Additional medical history: BRCA associated triple negative breast cancer with bone, liver, and brain metastases, focal seizure related to brain met, hypothyroidism - Surgical History Additional surgical history: bilateral mastectomy and sentinal LN dissection 2016, prophylactic total hysterectomy and bilateral salpingo-oophorectomy (2017), breast reconstruction (12/2017), left frontal craniotomy and resection of hemorrhagic brain lesion (02/2018) - Family History Additional family history: Great-grandmothers both with postmenopausal breast cancer. Paternal grandmother had colangiocarcinoma - Social History Smoking Status: Never smoked Alcohol Use: None Drug Use: None Additional social history: Lives in [place] with and two daughters. Worked as a massage therapist. Review of Systems Review of Systems: ROS: 10pt was reviewed & negative except for what was stated in HPI & below Physical Exam Physical Exam: Temp Pulse Resp BP Pulse Ox 36.8 C 71 15 95/78 L 89 L 08/09/18 14:51 08/09/18 14:51 08/09/18 14:51 08/09/18 14:51 08/09/18 14:51 Constitutional: no apparent distress, appears nourished, not in pain Eyes: PERRL, anicteric sclera, EOMI Ears, Nose, Mouth, Throat: dry mucous membranes Cardiovascular: regular rate and rhythym, no murmur, rub, or gallop, No edema Respiratory: no respiratory distress, no rales or rhonchi, clear to auscultation Gastrointestinal: normoactive bowel sounds, soft, non-tender abdomen, no palpable masses Genitourinary: no bladder fullness, no bladder tenderness Skin: warm, normal color, no rashes or abrasions, no fluctuance, no induration, No mottled Musculoskeletal: full muscle strength, no muscle tenderness, normal joint ROM, no joint effusions Neurologic: AAOx3 Psychiatric: interacting appropriately, not anxious, not encephalopathic, thought process linear Assessment & Plan Assessment: 38yo F with metastatic triple negative breast cancer who is directly admitted from oncology clinic due to nausea, emesis, dizziness, and generalized weakness. Plan: 1. Intractable nausea, vomiting: This seems to be related to cisplatin, as symptoms began shortly after starting this. Benign abdomen. - Check abdominal x-ray to eval for obstruction - PRN zofran, phenergan - Also has ativan and zyprexa hs available as needed - Consider scopolamine patch 2. Dizziness: Consistent with orthostasis in setting of minimal PO intake. Not consistent with vertigo and her neurologic exam is normal. 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 - Checking orthostatic vitals - Continue IV fluids - PT/OT 3. Thrombocytopenia: Down-trend from normal in June to 77 now. No e/o bleeding. Other cell lines ok. - Review recent CT for spleen size - possibly splenic sequestration - Reviewed medication list. Not common side effect of keppra and has been on for months. Timing of down-trend could fit with pembrolizumab (can cause ITP). - Check peripheral smear 4. Abnormal LFTs: Rising AST, ALT, alk phos, bilirubin ok. Consistent with infiltrative metastatic disease and less likely biliary obstruction. Will monitor. 5. Metastatic BRCA associated triple negative breast cancer: Progression on recent CT. Currently undergoing therapy with cisplatin (started 08/07) and pembrolizumab (1st dose 07/12, 2nd dose 08/02). Oncology aware of admission. 6. Brain metastases with history of focal seizure: S/p resection of left frontal lesion 02/2018 and stereotactic radiation to additional lesion last month. Continue keppra. 7. Osseous metastases: She is on monthly zometa infusions. 8. Hypothyroidism: Will continue home LT4 replacement. VTE ppx: LMWH Code: Full. At some point, will require discussion of switching to dnr/dni. Dispo: Admit under observation
[2018-08-09] MEDS: NS 1,000 ML IV SCH ×2 (15:06→23:24)
[2018-08-09] MEDS: IBUPROFEN 600 MG TAB PO PRN (15:06)
[2018-08-09] MEDS ORDERED: OLANZapine 2.5 MG TAB PO PRN (17:46)
[2018-08-09] MEDS ORDERED: LORazepam 1 MG TAB PO PRN (17:46)
--- NOTE | 2018-08-09 18:08 | GCON ---
[f rep st] CONSULTATION MEDICAL ONCOLOGY FOLLOWUP CONSULTATION REFERRING PHYSICIAN: Donn Cavazos MD REASON FOR CONSULTATION: Ongoing management of metastatic triple negative breast cancer. RECOMMENDATIONS: 1. Agree with treatment of nausea and vomiting as you are doing. 2. Because of the patient's recent rapidly progressive disease and her recent history of intracrania l metastases and the fact that she has triple negative breast cancer, I think it is reasonable to rep eat her MRI of the brain looking for evidence of new metastatic disease as well as any evidence of le ptomeningeal carcinomatosis. ASSESSMENT: This 38-year-old woman was diagnosed with metastatic triple negative adenocarcinoma of t he left breast upper outer quadrant in July of 2016. She has been treated with doxorubicin plus cyclo phosphamide followed by paclitaxel in the neoadjuvant setting as well as with olaparib. Recently, jovana quinones has had evidence of progressive disease and has been placed on pembrolizumab plus cisplatin. This was necessitated by development of rapidly progressive hepatic metastatic disease and the identificat ion of central nervous system metastasis. The patient was feeling okay yesterday, but this morning awoke with significant nausea, vomiting, and weakness. She came into the office and was given fluids, but had inadequate improvement in her symp toms and therefore was admitted for further treatment and evaluation. PAST MEDICAL HISTORY: Remarkable for hypothyroidism and a seizure secondary to brain metastases. Pr evious surgery includes cholecystectomy and bilateral mastectomies. FAMILY HISTORY: Remarkable for 2 maternal great-grandmothers having breast cancer and a paternal gra ndmother with gallbladder cancer. SOCIAL HISTORY: The patient is to [place]. She uses alcohol moderately. She has worked as a m assage therapist. REVIEW OF SYSTEMS: Currently remarkable for anorexia, nausea, and fatigue. PHYSICAL EXAMINATION: GENERAL: Shows an alert woman in mild distress mostly related to her mild kandis sea at this point. HEENT: Shows no scleral icterus. LUNGS: Clear to auscultation. CARDIAC: Exam shows a regular rhythm. ABDOMEN: Shows some mild tenderness over her right upper quadrant over her liver. She has normal bowel sounds. No ascites. LOWER EXTREMITIES: Show no edema. Thank you very much for allowing us to participate in this pleasant woman's oncologic care. We will look forward to assisting with her management during this hospitalization and beyond. /[id number]/MODL
[2018-08-09] MEDS: levETIRAcetam 500 MG TAB PO SCH (20:25)
[2018-08-09] MEDS: ONDANSETRON DISINTEGRATING 4 MG TAB PO PRN (20:33)
[2018-08-10] MEDS: ONDANSETRON DISINTEGRATING 4 MG TAB PO PRN (03:40)
[2018-08-10] MEDS ORDERED: LEVOTHYROXINE 75 MCG TAB PO SCH (06:00)
[2018-08-10] MEDS ORDERED: LIOTHYRONINE SODIUM 5 MCG TAB PO SCH (06:00)
[2018-08-10] MEDS: NS 1,000 ML IV SCH (06:26)
[2018-08-10] MEDS: IBUPROFEN 600 MG TAB PO PRN (06:29)
--- NOTE | 2018-08-10 08:29 | SOAPPROG ---
SOAP Progress Note Assessment/Plan: Assessment: 1) Metastatic triple negative breast cancer 2) Nausea and vomiting likely secondary to Cisplatin 3) Volume depletion secondary to #2 Plan: She feels better today. Nausea improved. Overall picture seems most c/w chemotherapy induced nausea related to Cisplatin. I do not think a brain MRI in indicated at this point given the clinical picture, and improvement in her symptoms. She would like to go home today. I think that this is reasonable if she continues to do well. I will add Dexamethasone 4 mg Q 8 hours PRN nausea. She should be d/c with an Rx for this medication. Labs pending this AM. These will need to be checked prior to d/c. She will follow up with Dr. Arredondo in clinic next week once discharged. Plan d/w patient. Her questions were answered. 08/10/18 08:24 Subjective: Feels better. Nausea resolved as is her dizziness.Gets mild BAUTISTA after Zofran, which resolves. Objective: Vital Signs Temp Pulse Resp BP Pulse Ox 36.9 C 56 L 14 96/75 L 94 08/10/18 03:34 08/10/18 03:34 08/10/18 03:34 08/10/18 03:34 08/10/18 03:34 08/09/18 08/10/18 08/11/18 05:59 05:59 05:59 Intake Total 2759 Output Total 1500 Balance 1259 - Time Spent With Patient Time Spent With Patient: 25 minutes Physical Exam - Physical Exam General Appearance: alert, no apparent distress EENT: PERRL/EOMI Neuro/Psych: no motor/sensory deficits, normal mood/affect, oriented x 3 ICD10 Worksheet Patient Problems: Problems Problem Status Onset Breast cancer Acute Dyspnea on effort Acute Fatigue Acute Seizure Acute
[2018-08-10 08:33] VITALS: BP 101/73
[2018-08-10] MEDS ORDERED: ENOXAPARIN 40 MG/0.4 ML SYR SC SCH (09:00)
[2018-08-10] MEDS ORDERED: GRANISETRON HCL 1 MG PO SCH (09:00)
[2018-08-10] MEDS: levETIRAcetam 500 MG TAB PO SCH (09:05)
[2018-08-10 09:32] LABS: PLATELET COUNT 55 10^3/uL (150-400)
[2018-08-10] MEDS ORDERED: DEXAMETHASONE 4 MG TAB PO PRN (09:39)
--- NOTE | 2018-08-10 11:50 | ASMTCMCOM ---
CM Note CM Note Notes: CM met with Pt and chart reviewed for discharge planning. Pt is a 38yr old admitted with breast Ca, Nausea, vomiting, dizziness and generalized weakness following the start of Chemo therapy approximately 1 week ago. Pt has a history of Mets to the liver, lung, spleen and brain. Pt had resected brain mass in 02/2018. Pt lives in [place] with her and 2 daughters. Pt is current with [facility]. CM available if needs arise. PLAN: Pt is discharging home with . Date Signed: 08/10/2018 11:49 AM Electronically Signed By:Fidelia Parry.MIRYAM,ELECTRONICS HARDWARE DESIGN ENGINEER
--- NOTE | 2018-08-10 11:51 | ASMTLACE ---
LACE Length of stay for Answers: 2 days current admission Acuity / Level of Answers: Yes Care: Did the patient have an inpatient admission? Comorbidities - select Answers: Any tumor (including all that apply lymphoma or leukemia) Other Notes: Hypothyroid # of Emergency department Answers: 1-2 visits in the last 6 months Score: 9 Date Signed: 08/10/2018 11:50 AM Electronically Signed By:Fidelia Parry.MIRYAM,DIMMER BOARD OPERATOR
--- NOTE | 2018-08-10 13:00 | GDS ---
[f rep st] DISCHARGE SUMMARY DISCHARGE DIAGNOSES: 1. Metastatic breast cancer with intracranial, hepatic, lung, spleen, adrenal, and central nervous s ystem metastases. 2. Thrombocytopenia secondary to chemotherapy. 3. Intractable nausea and vomiting secondary to chemotherapy, improved. 4. Abnormal LFTs. 5. Hypothyroidism. CONSULTATIONS: Dr. Esdras Mckinney, Oncology. HISTORY: For details, please see history and physical dated August 09, 2018. In brief, Ms Evans is a 38-year-old female with a history of metastatic triple negative breast cancer who presented to the hospital for direct admission from the oncology clinic due to nausea, vomiting, dizziness, and weakn ess, thought likely secondary to chemotherapy. She just started on pembrolizumab and cisplatin, with her most recent dose of cisplatin being Sunday prior to admission. Soon after, she developed kandis sea and took granisetron, which provided some benefit. However, she has had a poor appetite with wor sening nausea and developed recurrent emesis on the day of admission, where she was seen in the Oncol ogy Clinic. She was directly admitted to the hospital for supportive care. HOSPITAL COURSE: Patient admitted to the Cancer Care Unit. She received IV fluids, Zofran, and Phen ergan. Abdominal x-ray was negative for obstruction. Her symptoms dramatically improved the followi day, and the patient was discharged home. We discussed obtaining a brain MRI. It seems unlikely that she has new metastatic disease to explain her symptoms as her symptoms are more likely secondar y to recent chemotherapy. However, she notes that her platelets have been dropping in the outpatient setting, and there has been some concern that Keppra is the culprit. Her most recent brain MRI on 2018, showed a 4.5 mm enhancing lesion in the high left frontal lobe as well as a questionable new tiny 2 mm enhancing lesion in the posterior right frontal lobe. It has been considered repeating a brain MRI to see if these lesions have resolved; and if so, potentially she would stop Keppra in a n effort to improve her platelet count. She has had no evidence of bleeding. I discussed the case w jovany Meadows on the day of discharge, and he felt this could be done in the outpatient setting rat her than prolong her hospitalization. The patient's symptoms have completely resolved. She is chicho ating a regular diet. On the day of discharge, her vital signs are stable with a blood pressure of 1 01/73, heart rate 60, respiratory rate 17, and she is 90% on room air. DISPOSITION: Patient is discharged home in stable condition. FOLLOWUP: 1. Dr. Nadine Null, [facility], for repeat labs and consideration of outpatient brai n MRI. Note, her platelet count is now 55,000. 2. ELYSSA Gillespie, primary care. DISCHARGE MEDICATIONS: Please see [facility] for completed outpatient medication list. New medication s on discharge include: 1. Dexamethasone 4 mg p.o. q.8 hours p.r.n., #20, no refills, for recurrent nausea and vomiting. 2. Zofran 4 mg p.o. q.4 hours p.r.n., #20, no refills. 3. Tylenol 650 p.o. q.4 hours p.r.n. She will continue all other outpatient medications as previously prescribed. /[id number]/MODL
== END 2018-08-10 14:45 | disposition home or self-care (01) ==
LOC: INTOOBSV 14:47 → F1N 14:47
PROVIDERS: ADMIT Internal Medicine; ATTEND Hospitalist
DX: R11.2 Nausea with vomiting, unspecified (principal); D69.59 Other secondary thrombocytopenia; T45.1X5A Adverse effect of antineoplastic and immunosuppressive drugs, initial encounter; R55 Syncope and collapse; E03.9 Hypothyroidism, unspecified; E86.9 Volume depletion, unspecified; C50.412 Malignant neoplasm of upper-outer quadrant of left female breast; C79.31 Secondary malignant neoplasm of brain; C78.00 Secondary malignant neoplasm of unspecified lung; C79.70 Secondary malignant neoplasm of unspecified adrenal gland; C78.7 Secondary malignant neoplasm of liver and intrahepatic bile duct; C79.51 Secondary malignant neoplasm of bone; Z80.3 Family history of malignant neoplasm of breast; Z15.01 Genetic susceptibility to malignant neoplasm of breast; Z17.1 Estrogen receptor negative status [ER-]
CPT/HCPCS: 74018; G0378; J2550

== ENCOUNTER → 2018-08-13 | Outpatient (CLI) | payer OTHER | LOC: FIMAGING 14:34 ==

== ENCOUNTER → 2018-08-19 | Outpatient (CLI) | payer OTHER | LOC: CIMAGING 13:17 ==

== ENCOUNTER 2018-09-04 15:00 | Inpatient (IN) | payer OTHER | END 2018-09-07 13:14 | disposition home or self-care (01) | LOC: F1N 15:00 ==